=== PATIENT | male | born 1950 | race Caucasian/White ===

== ENCOUNTER → 2017-01-16 | Outpatient (REF) | payer OTHER, MEDICAID ==
[2017-01-16 16:37] LABS: ALBUMIN 3.5 GM/DL (3.2-5.2); ALBUMIN/GLOBULIN RATIO 1.06 (1.00-1.93); ALKALINE PHOSPHATASE 81 U/L (45-117); ALT/SGPT 19 U/L (12-78); ANION GAP 6 MEQ/L (8-16); AST/SGOT 17 U/L (7-37); BILIRUBIN,TOTAL 0.5 MG/DL (0.2-1.0); BLOOD UREA NITROGEN 14 MG/DL (7-18); CALCIUM LEVEL 8.6 MG/DL (8.8-10.2); CARBON DIOXIDE LEVEL 30 MEQ/L (21-32); CHLORIDE LEVEL 104 MEQ/L (98-107); CHOLESTEROL LEVEL 206 MG/DL (<200); CREATININE FOR GFR 0.85 MG/DL (0.70-1.30); GLOMERULAR FILTRATION RATE > 60.0 (>49); GLUCOSE, FASTING 109 MG/DL (80-110); POTASSIUM SERUM 4.3 MEQ/L (3.5-5.1); SODIUM LEVEL 140 MEQ/L (136-145); TOTAL PROTEIN 6.8 GM/DL (6.4-8.2); TRIGLYCERIDES LEVEL 89 MG/DL (<150)
== END ==
LOC: M SFHCCLAY 13:51
PROVIDERS: ATTEND Nurse Practitioner Family
DX: E78.2 Mixed hyperlipidemia (principal)

== ENCOUNTER → 2017-01-18 | Outpatient (CLI) | payer OTHER, MEDICAID ==
--- NOTE | 2017-01-18 16:53 | REP ---
Clinical: Pain and decreased range of motion. Technique: AP and lateral views of the right humerus. Findings: Early advanced arthritic changes at the right shoulder include subacromial joint space narrowing, cortical irregularity and spurring at the acromioclavicular joint as well small osteophyte along the inferior margin of the humeral head and blunting of the glenoid rim. No acute fracture dislocation. Impression: Early advanced degenerative changes at the right shoulder. No acute fracture or dislocation.
--- NOTE | 2017-01-18 16:54 | REP ---
Clinical: Pain and decreased range of motion. Technique: Internal rotation, external rotation, and Y view of the right shoulder. Findings: Early advanced arthritic changes at the right shoulder include subacromial joint space narrowing, cortical irregularity and spurring at the acromioclavicular joint as well small osteophyte along the inferior margin of the humeral head and blunting of the glenoid rim. No acute fracture dislocation. Impression: Early advanced osteoarthritic degenerative changes.
== END ==
LOC: M CLY 15:46
PROVIDERS: ATTEND Nurse Practitioner Family
DX: M19.011 Primary osteoarthritis, right shoulder (principal)
CPT/HCPCS: 73030; 73060; 90662; G0008; G0463

== ENCOUNTER → 2017-09-14 | Outpatient (REF) | payer OTHER, MEDICAID ==
[2017-09-14 14:12] LABS: BASO % 0.4 % (0.0-1.0); EOS # 0.1 10^3/uL (0.0-0.50); EOS % 1.8 % (0.0-3.0); HEMATOCRIT 40.6 % (42.0-52.0); HEMOGLOBIN 13.6 g/dl (13.5-17.5); IMMATURE GRANULOCYTE % 0.4 % (0-3.0); LYMPH # 0.8 10^3/uL (1.5-4.5); LYMPH % 10.2 % (24.0-44.0); MEAN CORPUSCULAR HEMOGLOBIN 32.2 pg (27.0-33.0); MEAN CORPUSCULAR HGB CONC 33.5 g/dl (32.0-36.5); MEAN CORPUSCULAR VOLUME 96.2 fl (80.0-96.0); MONO # 0.6 10^3/uL (0.0-0.8); MONO % 7.6 % (0.0-5.0); NEUTROPHILS # 5.8 10^3/uL (1.8-7.7); NEUTROPHILS % 79.6 % (36.0-66.0); PLATELET COUNT, AUTOMATED 189 10^3/uL (150-450); RED BLOOD COUNT 4.22 10^6/uL (4.30-6.10); RED CELL DISTRIBUTION WIDTH 13.3 % (11.5-14.5); WHITE BLOOD COUNT 7.3 10^3/uL (4.0-10.0)
[2017-09-14 14:18] LABS: FOLATE 4.4 NG/ML; VITAMIN B12 LEVEL 320 PG/ML
[2017-09-14 14:21] LABS: ALBUMIN 3.6 GM/DL (3.2-5.2); ALBUMIN/GLOBULIN RATIO 1.24 (1.00-1.93); ALKALINE PHOSPHATASE 85 U/L (45-117); ALT/SGPT 21 U/L (12-78); ANION GAP 5 MEQ/L (8-16); AST/SGOT 13 U/L (7-37); BILIRUBIN,TOTAL 0.4 MG/DL (0.2-1.0); BLOOD UREA NITROGEN 14 MG/DL (7-18); CALCIUM LEVEL 8.6 MG/DL (8.8-10.2); CARBON DIOXIDE LEVEL 29 MEQ/L (21-32); CHLORIDE LEVEL 108 MEQ/L (98-107); CREATININE FOR GFR 0.92 MG/DL (0.70-1.30); GLOMERULAR FILTRATION RATE > 60.0 (>49); GLUCOSE, FASTING 68 MG/DL (70-100); POTASSIUM SERUM 4.7 MEQ/L (3.5-5.1); RHEUMATOID FACTOR QUANT < 10.0 IU/ML (<15.0); SODIUM LEVEL 142 MEQ/L (136-145); THYROID STIMULATING HORMONE 0.615 uIU/ML (0.358-3.740); TOTAL PROTEIN 6.5 GM/DL (6.4-8.2)
[2017-09-14 14:29] LABS: ESTIMATED AVERAGE GLUCOSE 114 MG/DL (60-110); HEMOGLOBIN A1c 5.6 %
[2017-09-14 14:55] LABS: ERYTHROCYTE SEDIMENTATION RATE 4 mm/hr (0-20)
[2017-09-19 11:56] LABS: ALBUMIN 3.97 GM/DL (3.29-5.55); ALBUMIN % 61.1 % (55.8-66.1); ALPHA-1-GLOBULIN % 4.4 % (2.9-4.9); ALPHA-1-GLOBULINS 0.29 GM/DL (0.17-0.41); ALPHA-2-GLOBULINS 0.66 GM/DL (0.42-0.99); ALPHA-2-GLOBULINS % 10.2 % (7.1-11.8); BETA-1-GLOBULINS % 6.1 % (4.7-7.2); BETA-2-GLOBULINS 0.27 GM/DL (0.19-0.55); BETA-2-GLOBULINS % 4.1 % (3.2-6.5); GAMMA GLOBULIN % 14.1 % (11.1-18.8); GAMMA GLOBULINS 0.92 GM/DL (0.65-1.58)
[2017-09-20 00:07] LABS: ANCA-ATYPICAL <1:20 titer (Neg:<1:20); ANTI DOUBLE STRAND-DNA AB <1 IU/mL (0-9); ANTINUCLEAR ANTIBODIES DIRECT Negative (Negative); CERULOPLASMIN 26.6 mg/dL (16.0-31.0); COPPER PLASMA 105 ug/dL (72-166); CYTOPLASMIC NEUTROP AB ANCA-C <1:20 titer (Neg:<1:20); LEAD BLOOD ADULT 3 ug/dL (0-19); MERCURY LEVEL None Detected ug/L (0.0-14.9); PERINUCLEAR AB ANCA-P <1:20 titer (Neg:<1:20); SJOGREN'S ANTI SS-A <0.2 AI (0.0-0.9); SJOGREN'S ANTI SS-B <0.2 AI (0.0-0.9); VITAMIN B1 LEVEL WHOLE BLOOD 108.5 nmol/L (66.5-200.0); VITAMIN B6,PYRIDOXAL PHOSPHATE 3.7 ug/L (5.3-46.7); VITAMIN E(ALPHA TOCOPHEROL) 8.5 mg/L (9.0-29.0); VITAMIN E(GAMMA TOCOPHEROL) 1.9 mg/L (0.5-4.9)
== END ==
LOC: M LABNEURO 10:29
DX: R25.1 Tremor, unspecified (principal); G31.84 Mild cognitive impairment of uncertain or unknown etiology; Z79.899 Other long term (current) drug therapy
CPT/HCPCS: 82525

== ENCOUNTER → 2017-11-01 | Outpatient (CLI) | payer OTHER, MEDICAID | LOC: M RAD 07:50 | DX: R33.9 Retention of urine, unspecified (principal); N20.0 Calculus of kidney; R39.198 Other difficulties with micturition | CPT/HCPCS: 76775 ==

== ENCOUNTER → 2017-12-01 | Outpatient (REF) | payer OTHER, MEDICAID ==
[2017-12-01 18:47] LABS: APPEARANCE, URINE CLOUDY (CLEAR); BACTERIA, URINE AUTO 2+ (NEGATIVE); BILIRUBIN, URINE AUTO NEGATIVE (NEGATIVE); BLOOD, URINE BLOOD 3+ (NEGATIVE); COLOR, URINE RED (YELLOW); GLUCOSE, URINE (UA) AUTO NEGATIVE (NEGATIVE); KETONE, URINE AUTO TRACE mg/dL (NEGATIVE); LEUKOCYTE ESTERASE, URINE AUTO 3+ (NEGATIVE); NITRITE, URINE AUTO POSITIVE (NEGATIVE); PROTEIN, URINE AUTO 2+ mg/dL (NEGATIVE); RBC, URINE AUTO TNTC /HPF (0-3); SPECIFIC GRAVITY URINE AUTO 1.008 (1.002-1.035); SQUAMOUS EPITHELIAL CELL UR AU 0 /HPF (0-6); UROBILINOGEN, URINE AUTO 0.2 mg/dL (0.0-2.0); WBC, URINE AUTO TNTC /HPF (0-3)
== END ==
LOC: M SMT 17:08
DX: R10.30 Lower abdominal pain, unspecified (principal)
CPT/HCPCS: 81001

== ENCOUNTER 2017-12-21 07:48 | Day surgery (SDC) | payer OTHER, MEDICAID ==
[2017-12-21] MEDS: LR 1,000 ML IV ×2 (09:33)
[2017-12-21] MEDS ORDERED: MIDAZOLAM INJ 2 MG/2 ML VIAL (J2250) As Ordered ×2 (10:42)
[2017-12-21] MEDS ORDERED: PROPOFOL 200 MG/20 ML VIAL As Ordered ×2 (10:42)
[2017-12-21] MEDS ORDERED: LIDOCAINE 2% INJ 100 MG/5 ML SDV (FOR ANES.) As Ordered ×2 (10:42)
[2017-12-21] MEDS ORDERED: dexameTHASONE 4 MG/ML 1ML VIAL (J1100) As Ordered ×2 (10:42)
[2017-12-21] MEDS ORDERED: ONDANSETRON 4MG/2ML VIAL (J2405) As Ordered ×2 (10:42)
[2017-12-21] MEDS ORDERED: fentaNYL 100 MCG/2 ML INJECTION (J3010) As Ordered ×2 (10:42)
[2017-12-21] MEDS: LIDOCAINE 2% 5ML JELLY UROJET As Ordered ×2 (11:24)
[2017-12-21] MEDS ORDERED: ePHEDrine SULFATE 25 MG/5 ML(5MG/ML) SYRINGE As Ordered ×2 (11:26)
== END 2017-12-21 13:10 | disposition home or self-care (01) ==
LOC: M SDC 07:48
DX: N20.0 Calculus of kidney (principal); R33.9 Retention of urine, unspecified; K21.9 Gastro-esophageal reflux disease without esophagitis; E78.5 Hyperlipidemia, unspecified; F17.210 Nicotine dependence, cigarettes, uncomplicated; F41.9 Anxiety disorder, unspecified; Z79.899 Other long term (current) drug therapy
CPT/HCPCS: 50590

== ENCOUNTER → 2018-01-12 | Outpatient (CLI) | payer OTHER | LOC: M SMT 08:52 | DX: N20.0 Calculus of kidney (principal) | CPT/HCPCS: 74018 ==

== ENCOUNTER 2018-03-07 09:49 | Day surgery (SDC) | payer MEDICARE, MEDICAID ==
[~2018-03-07] VITALS: Ht 162.6 cm; Wt 60.8 kg
[~2018-03-07 09:49] MED LIST: ATOR40TA75 PO; BACT800T5 PO; BUSP10TA PO; DONETAB6 PO; FLOM0.4C39 PO; GLYCOPYRROLATE INJ 0.2 MG/ML 2 ML VIAL As Ordered ONE; LIDOCAINE 1% MDV 20ML VIAL SQ PRN; LIDOCAINE 2% INJ 100 MG/5 ML SDV (FOR ANES.) As Ordered ONE; LR 1,000 ML IV ONE; MIDAZOLAM INJ 2 MG/2 ML VIAL (J2250) As Ordered ONE; NEOSTIGMINE 10 MG/10 ML VIAL (J2710) As Ordered ONE; ONDANSETRON 4MG/2ML VIAL (J2405) As Ordered ONE; PROPOFOL 200 MG/20 ML VIAL As Ordered ONE; RANI150T PO; ROCURONIUM BROMIDE 50 MG/5 ML VIAL As Ordered ONE; WELLTAB38 PO; dexameTHASONE 4 MG/ML 1ML VIAL (J1100) As Ordered ONE; fentaNYL 100 MCG/2 ML INJECTION (J3010) As Ordered ONE
[2018-03-07] MEDS ORDERED: fentaNYL 100 MCG/2 ML INJECTION (J3010) As Ordered ONE (13:07)
[2018-03-07] MEDS ORDERED: LABETALOL HCL 100 MG/20 ML VIAL As Ordered ONE (13:14)
[2018-03-07] MEDS ORDERED: FUROSEMIDE 100 MG/10 ML VIAL (J1940) As Ordered ONE (13:50)
--- NOTE | 2018-03-07 14:22 | RO ---
DATE OF PROCEDURE: 03/07/2018 PREPROCEDURE DIAGNOSIS: Benign prostatic hyperplasia (BPH). POSTPROCEDURE DIAGNOSIS: Benign prostatic hyperplasia (BPH). PROCEDURE: Cystoscopy, button transurethral electrovaporization of the prostate. SURGEON: Henry Chapa MD PELLET POST INSPECTOR: None. ANESTHESIA: General. OPERATIVE INDICATIONS: This is a 67-year-old male with benign prostatic hyperplasia and urinary retention, who was brought to the operating room today for the above listed procedure. DESCRIPTION OF PROCEDURE: The patient was brought to the operating and general anesthesia was induced. Prophylactic antibiotics were infused. He was then placed in dorsal lithotomy position and prepped and draped in the usual sterile fashion. At this point, a button resectoscope was inserted into the urethral meatus and advanced into the bladder using the visual obturator. Once inside the bladder, I made note of the location of both ureteral orifices and they were not very close to the bladder neck. I also made note of the location of the verumontanum. Of note, the patient had bilobar benign prostatic hyperplasia. At this point, I began vaporizing hyperplastic tissue circumferentially at the bladder neck and then on both lobes of disease. I kept doing this until there was a clear channel established. Throughout the procedure, I made sure not to vaporize too close to the ureteral orifices or distal the verumontanum. Once satisfied with the clear channel, hemostasis was obtained with a coagulation current. Once there was excellent hemostasis, the resectoscope was removed and then an 18-[place] Andrews catheter was inserted into the bladder. The balloon was filled with 15 mL of sterile water and fluid drained very light pink at the end of the procedure. The catheter was connected to gravity drainage. This marked the conclusion of the procedure. The patient was then taken out of dorsal lithotomy position, awakened from anesthesia and transported to the recovery room in stable condition. ESTIMATED BLOOD LOSS: 15 mL. COMPLICATIONS: None. SPECIMENS: None. PLAN: The patient will go home with a catheter and followup in the clinic next week for catheter removal and voiding trial. ANAY
[2018-03-07] MEDS ORDERED: NORCO, ANEXSIA 5/325MG TABLET (HYDROcodone/ACETAMINOPHEN) PO PRN (14:30)
[2018-03-07] MEDS ORDERED: ACETAMINOPHEN TAB 650MG DOSE (2X325MG) PO PRN (14:30)
[2018-03-07] MEDS ORDERED: ONDANSETRON 4MG/2ML VIAL (J2405) IV PRN (14:30)
[2018-03-07] MEDS ORDERED: fentaNYL 100 MCG/2 ML INJECTION (J3010) IV PRN (14:30)
[2018-03-07] MEDS ORDERED: LR 1,000 ML IV SCH (14:30)
[2018-03-07 15:55] VITALS: BP 150/74
== END 2018-03-07 16:25 | disposition home or self-care (01) ==
LOC: M SDC 09:49
PROVIDERS: ATTEND Urology
DX: N40.1 Benign prostatic hyperplasia with lower urinary tract symptoms (principal); E78.5 Hyperlipidemia, unspecified; K21.9 Gastro-esophageal reflux disease without esophagitis; F41.9 Anxiety disorder, unspecified; Z79.899 Other long term (current) drug therapy; F17.210 Nicotine dependence, cigarettes, uncomplicated
CPT/HCPCS: 52601; J0690; J1100; J1940; J2250; J2405; J2710; J3010

== ENCOUNTER 2018-09-29 18:15 | Emergency (ER) | payer MEDICARE, MEDICAID ==
[~2018-09-29] VITALS: Ht 162.6 cm; Wt 51.6 kg
[~2018-09-29 18:15] MED LIST changes: +ATOR40TA75 PEG; -ATOR40TA75 PO; +BUSP10TA PEG; -BUSP10TA PO; -GLYCOPYRROLATE INJ 0.2 MG/ML 2 ML VIAL As Ordered ONE; -LIDOCAINE 1% MDV 20ML VIAL SQ PRN; -LIDOCAINE 2% INJ 100 MG/5 ML SDV (FOR ANES.) As Ordered ONE; -LR 1,000 ML IV ONE; -MIDAZOLAM INJ 2 MG/2 ML VIAL (J2250) As Ordered ONE; -NEOSTIGMINE 10 MG/10 ML VIAL (J2710) As Ordered ONE; -ONDANSETRON 4MG/2ML VIAL (J2405) As Ordered ONE; -PROPOFOL 200 MG/20 ML VIAL As Ordered ONE; -ROCURONIUM BROMIDE 50 MG/5 ML VIAL As Ordered ONE; -dexameTHASONE 4 MG/ML 1ML VIAL (J1100) As Ordered ONE; -fentaNYL 100 MCG/2 ML INJECTION (J3010) As Ordered ONE
[2018-09-29] MEDS ORDERED: CLEO300C2 PO (18:48)
[2018-09-29] MEDS ORDERED: OXYC10TA12 PO (18:48)
[2018-09-29] MEDS ORDERED: NAPR-885 PO (18:48)
[2018-09-29] MEDS ORDERED: PERCOCET 5MG/325MG TAB PO ONE (19:00)
[2018-09-29] MEDS ORDERED: ACETAMINOPHEN TAB 650MG DOSE (2X325MG) PO ONE (19:00)
[2018-09-29 19:22] LABS: BASO % 0.4 % (0.0-1.0); EOS # 0.2 10^3/uL (0.0-0.50); EOS % 2.7 % (0.0-3.0); HEMATOCRIT 37.4 % (42.0-52.0); HEMOGLOBIN 12.7 g/dl (13.5-17.5); LYMPH # 1.3 10^3/uL (1.5-4.5); LYMPH % 16.6 % (24.0-44.0); MEAN CORPUSCULAR HEMOGLOBIN 32.7 pg (27.0-33.0); MEAN CORPUSCULAR VOLUME 96.4 fl (80.0-96.0); MONO # 0.6 10^3/uL (0.0-0.8); MONO % 7.8 % (0.0-5.0); NEUTROPHILS # 5.6 10^3/uL (1.8-7.7); NEUTROPHILS % 72.2 % (36.0-66.0); PLATELET COUNT, AUTOMATED 183 10^3/uL (150-450); RED BLOOD COUNT 3.88 10^6/uL (4.30-6.10); WHITE BLOOD COUNT 7.8 10^3/uL (4.0-10.0)
[2018-09-29 19:42] LABS: ALBUMIN 3.7 GM/DL (3.2-5.2); ALT/SGPT 30 U/L (12-78); BILIRUBIN,DIRECT < 0.1 MG/DL (0.0-0.2); BILIRUBIN,TOTAL 0.5 MG/DL (0.2-1.0); TOTAL PROTEIN 6.5 GM/DL (6.4-8.2)
[2018-09-29] MEDS ORDERED: ISOVUE-370 76% 100ML VIAL (Q9967) As Ordered ONE (19:47)
--- NOTE | 2018-09-29 21:01 | REPVR ---
EXAM: CT Neck With Contrast EXAM DATE/TIME: 09/29/2018 7:51 PM CLINICAL HISTORY: 67 years old, male; Other: Jaw pain; Prior surgery; Surgery date: <1 month; Surgery type: Jaw surgery 3wks ago; Additional info: Left jaw/submandibular pain; ? Abscess TECHNIQUE: Imaging protocol: Axial computed tomography images of the neck with intravenous contrast. Coronal and sagittal reformatted images were created and reviewed. Radiation optimization: All CT scans at this facility use at least one of these dose optimization techniques: automated exposure control; mA and/or kV adjustment per patient size (includes targeted exams where dose is matched to clinical indication); or iterative reconstruction. Contrast material: ISOVUE 370;Contrast volume: 75 ml;Contrast route: IV; COMPARISON: No relevant prior studies available. FINDINGS: Nasopharynx: Normal. Oropharynx: The epiglottis appears to be pressed against the base of the tongue. Slight asymmetric prominence of the left tonsil with some caudal edema and asymmetric decreased size of the left piriform sinus. Hypopharynx: Normal. Larynx: Normal. Normal epiglottis. Retropharyngeal space: Normal. Submandibular/Parotid glands: Normal. Glands are normal in size. Thyroid: Normal. No enlarged or calcified nodules. Lymph nodes: Normal. No lymphadenopathy. Trachea: Visualized trachea is unremarkable. Lungs: Normal as visualized. Bones/joints: Normal. No acute fracture. Soft tissues: Minimal gas and confluence along the lingual aspect of the anterior right mandibular body suggesting minimal abscess with surrounding inflammatory induration or phlegmon. There is asymmetric increased surrounding vasculature. IMPRESSION: 1. [place] with minimal gas along the lingual aspect of the anterior right mandibular body suggesting minimal abscess and surrounding inflammatory induration or phlegmon. 2. Slightly enlarged left tonsil with edema extending caudally and asymmetric decreased left piriform sinus. Electronically signed by: Momo Burgos On 09/29/2018 21:00:29 PM
[2018-09-29 21:45] VITALS: BP 150/70
[2018-09-29] MEDS ORDERED: FLON1SPR NARES (22:05)
--- NOTE | 2018-10-01 21:40 | ED PDOC ---
Post-Departure Follow-Up kylie tyler and dr leyva faxed formal report of ct neck for fu ameeg Francis Huitron MD Oct 01, 2018 21:40
[2019-02-12] MEDS ORDERED: MECL1TAB31 PO (22:35)
== END 2018-09-29 22:14 | disposition home or self-care (01) ==
LOC: M ED 18:15
DX: H65.02 Acute serous otitis media, left ear (principal); J35.1 Hypertrophy of tonsils; K08.89 Other specified disorders of teeth and supporting structures; N40.0 Benign prostatic hyperplasia without lower urinary tract symptoms; K21.9 Gastro-esophageal reflux disease without esophagitis; Z72.0 Tobacco use; Z79.899 Other long term (current) drug therapy
CPT/HCPCS: 70491; 80047; 80076; 83605; 85025; 87040; 99284; Q9967

== ENCOUNTER → 2018-10-15 | Outpatient (CLI) | payer MEDICARE, MEDICAID ==
[~2018-10-15] MED LIST changes: -ATOR40TA75 PEG; +ATOR40TA75 PO; -BUSP10TA PEG; +BUSP10TA PO; +CLEO300C2 PO; +FLON1SPR NARES; +NAPR-885 PO; +OXYC10TA12 PO
--- NOTE | 2018-10-15 14:11 | REP ---
Whole body radionuclide bone scan: The study is performed with intravenous infusion of MDP radiolabeled with 21.2 mCi of technetium 99m. There are no comparison studies. The patient complains of left mandibular pain after dental surgery. There is no abnormal or unusual focal uptake in the calvarium, maxilla or mandible, including right and left lateral views of the head and neck. There is no focal abnormal uptake in the neck. There is bilaterally symmetric uptake in the shoulders, compatible with osteoarthritis. There is no focal increased uptake in the thoracic or lumbar spine. No focal unusual uptake in the ribs or sternum or upper extremities. In the abdomen the bladder is markedly distended and filled with radiolabeled urine in spite of the fact that the the patient indicates he voided as best as possible just prior to the imaging. Follow-up evaluation for bladder outlet stenosis might be considered. No abnormal uptake foci are identified in the pelvis or hips. No abnormal foci are identified in the lower extremities. Impression: Normal. No abnormal focal areas of uptake are identified, particularly in the mandible on the left. There are is bilaterally symmetric uptake in the shoulders, compatible with osteoarthritis. The bladder is markedly distended and filled with radiolabeled urine in spite of the fact that the the patient indicates he voided as best as possible just prior to imaging. Therefore, follow-up evaluation of the bladder outlet stenosis might be considered. Consider bladder ultrasound including pre and post void bladder volume evaluation. Also consider a renal ultrasound for hydronephrosis. Electronically Signed by Reginald Lundy MD 10/15/2018 02:02 P
== END ==
LOC: M RAD 09:52
PROVIDERS: ATTEND Otolaryngology
DX: M86.28 Subacute osteomyelitis, other site (principal)
CPT/HCPCS: 78306; A9503

== ENCOUNTER → 2019-01-16 | Outpatient (REF) | payer MEDICARE, MEDICAID ==
[2019-01-16 13:07] LABS: BASO # 0.1 10^3/uL (0.0-0.2); BASO % 0.6 % (0.0-1.0); EOS # 0.1 10^3/uL (0.0-0.5); EOS % 1.5 % (0.0-3.0); HEMATOCRIT 38.7 % (42.0-52.0); HEMOGLOBIN 12.5 g/dl (13.5-17.5); LYMPH # 1.1 10^3/uL (1.5-5.0); LYMPH % 13.5 % (24.0-44.0); MEAN CORPUSCULAR HEMOGLOBIN 32.2 pg (27.0-33.0); MEAN CORPUSCULAR HGB CONC 32.3 g/dl (32.0-36.5); MEAN CORPUSCULAR VOLUME 99.7 fl (80.0-96.0); MONO # 0.6 10^3/uL (0.0-0.8); MONO % 7.4 % (0.0-5.0); NEUTROPHILS # 6.5 10^3/uL (1.5-8.5); NEUTROPHILS % 76.6 % (36.0-66.0); PLATELET COUNT, AUTOMATED 272 10^3/uL (150-450); RED BLOOD COUNT 3.88 10^6/uL (4.30-6.10); WHITE BLOOD COUNT 8.4 10^3/uL (4.0-10.0)
[2019-01-16 13:20] LABS: ALBUMIN 3.6 GM/DL (3.2-5.2); ALT/SGPT 26 U/L (12-78); BILIRUBIN,TOTAL 0.6 MG/DL (0.2-1.0); BLOOD UREA NITROGEN 14 MG/DL (7-18); CALCIUM LEVEL 9.8 MG/DL (8.8-10.2); CARBON DIOXIDE LEVEL 30 MEQ/L (21-32); CHLORIDE LEVEL 104 MEQ/L (98-107); CHOLESTEROL LEVEL 170 MG/DL (<200); CHOLESTEROL RISK RATIO 1.734 (<5); CREATININE FOR GFR 0.94 MG/DL (0.70-1.30); GLOMERULAR FILTRATION RATE > 60.0 (>49); GLUCOSE, FASTING 90 MG/DL (70-100); HDL CHOLESTEROL 98 MG/DL (>40); LDL CHOLESTEROL 61 MG/DL (<100); NON-HDL-C 72 MG/DL; POTASSIUM SERUM 4.5 MEQ/L (3.5-5.1); SODIUM LEVEL 140 MEQ/L (136-145); THYROID STIMULATING HORMONE 0.791 uIU/ML (0.358-3.740); TRIGLYCERIDES LEVEL 54 MG/DL (<150)
== END ==
LOC: M SFHCLERA 10:14
PROVIDERS: ATTEND Family Medicine
DX: R63.4 Abnormal weight loss (principal); E78.5 Hyperlipidemia, unspecified
CPT/HCPCS: 80053; 80061; 84443; 85025; G0463

== ENCOUNTER → 2019-01-28 | Outpatient (CLI) | payer MEDICARE, MEDICAID ==
[~2019-01-28] MED LIST changes: +ISOVUE-370 76% 100ML VIAL (Q9967) As Ordered ONE
--- NOTE | 2019-01-28 10:57 | REP ---
Clinical: Inhalational disease . Comparison: 10/05/2009 . Technique: PA and lateral. Findings: The mediastinum and cardiac silhouette are normal. The lung arceo demonstrate chronic-appearing changes without acute consolidation, effusion, or pneumothorax. The skeletal structures are intact and normal. Impression: 1. No acute cardiopulmonary process. Electronically Signed by Rene Kerr MD 01/28/2019 10:49 A
--- NOTE | 2019-01-29 08:03 | REP ---
Clinical: Inhalational pneumonitis. Technique: Axial contrast enhanced images from the thoracic inlet to the upper abdomen with coronal and sagittal re-formations using 75 ml Isovue 370 intravenous contrast material. Findings: Moderate chronic emphysematous changes are appreciated along with mild bronchiectasis and minimal scattered basilar scarring. 9 mm noncalcified nodule in the anterior subpleural right middle lobe (image 71) along with subtle tree in bud type infiltrates involving the right middle lobe and right lower lobe suggest acute pneumonitis. No effusion. No significant adenopathy. Mediastinum demonstrates relatively normal thoracic aorta without aneurysm or dissection. Atherosclerotic changes to the coronary arteries noted without cardiomegaly or pericardial effusion. Musculoskeletal structures demonstrate age-related degenerative changes without focal abnormality. Limited upper abdomen demonstrates normal bilateral adrenal glands along with cholelithiasis. Impression: 1. Subtle tree in bud type pattern in the right middle lobe and right lower lobe suggest acute pneumonitis. 9 mm noncalcified nodule in the subpleural right middle lobe. Findings warrant short-term follow-up. 2. Chronic emphysematous changes with mild bronchiectasis. 3. Cholelithiasis. Electronically Signed by Rene Kerr MD 01/28/2019 11:17 A
== END ==
LOC: M RAD 10:23
PROVIDERS: ATTEND Thoracic Surgery (Cardiothoracic Vascular Surgery)
DX: R91.1 Solitary pulmonary nodule (principal); J47.9 Bronchiectasis, uncomplicated; K80.20 Calculus of gallbladder without cholecystitis without obstruction; J69.8 Pneumonitis due to inhalation of other solids and liquids
CPT/HCPCS: 71046; 71260; Q9967

== ENCOUNTER 2019-02-05 08:42 | Outpatient (RCR) | payer MEDICARE, MEDICAID ==
[~2019-02-05 08:42] MED LIST changes: +ATOR40TA75 PEG; -ATOR40TA75 PO; +BUSP10TA PEG; -BUSP10TA PO; -ISOVUE-370 76% 100ML VIAL (Q9967) As Ordered ONE
[2019-02-12] MEDS ORDERED: LEVA1TAB2 PO ×2 (18:53→22:35)
[2019-02-12] MEDS ORDERED: ALBU83IN INH (22:35)
[2019-02-12] MEDS ORDERED: GABA-843 PO (22:35)
[2019-02-12] MEDS ORDERED: DONE10TA90 PEG (22:35)
[2019-02-12] MEDS ORDERED: MECL-68 PO (22:35)
[2019-02-12] MEDS ORDERED: ASPI-161 PO (22:35)
[2019-02-12] MEDS ORDERED: NAPR500T6 PO (22:35)
[2019-02-16] MEDS ORDERED: DETR1TAB5 PEG (09:21)
[2019-02-16] MEDS ORDERED: BUPR75TA5 PEG (09:21)
[2019-02-16] MEDS ORDERED: ASPI81CH8 PEG (09:21)
[2019-02-16] MEDS ORDERED: Benzocaine Gel MT (09:24)
[2019-02-16] MEDS ORDERED: DOXA2TAB3 PO (12:51)
== END 2019-02-26 ==
LOC: M ST 08:42
PROVIDERS: ATTEND Family Medicine
DX: Z51.89 Encounter for other specified aftercare (principal); I69.391 Dysphagia following cerebral infarction

== ENCOUNTER 2019-02-12 18:47 | Inpatient (IN) | payer MEDICARE, MEDICAID ==
[~2019-02-12] VITALS: Ht 162.6 cm; Wt 47.0 kg
[~2019-02-12 18:47] MED LIST changes: -ALBU83IN INH; -ASPI-161 PO; -DONE10TA90 PO; -GABA-843 PO; -LEVA1TAB2 PO; -MECL-68 PO; -NAPR500T6 PO
[2019-02-12] MEDS ORDERED: LEVA1TAB2 PO ×2 (18:53→22:35)
[2019-02-12 19:53] LABS: BASO % 0.4 % (0.0-1.0); EOS # 0.1 10^3/uL (0.0-0.5); EOS % 1.1 % (0.0-3.0); HEMATOCRIT 35.4 % (42.0-52.0); HEMOGLOBIN 11.6 g/dl (13.5-17.5); LYMPH # 1.2 10^3/uL (1.5-5.0); LYMPH % 10.9 % (24.0-44.0); MEAN CORPUSCULAR HEMOGLOBIN 31.6 pg (27.0-33.0); MEAN CORPUSCULAR HGB CONC 32.8 g/dl (32.0-36.5); MEAN CORPUSCULAR VOLUME 96.5 fl (80.0-96.0); MONO # 0.8 10^3/uL (0.0-0.8); MONO % 7.1 % (0.0-5.0); NEUTROPHILS # 9.1 10^3/uL (1.5-8.5); NEUTROPHILS % 80.1 % (36.0-66.0); PLATELET COUNT, AUTOMATED 307 10^3/uL (150-450); RED BLOOD COUNT 3.67 10^6/uL (4.30-6.10); WHITE BLOOD COUNT 11.3 10^3/uL (4.0-10.0)
[2019-02-12] MEDS ORDERED: NS 1,000 ML IV SCH (20:03)
[2019-02-12 20:27] LABS: BLOOD UREA NITROGEN 21 MG/DL (7-18); CALCIUM LEVEL 9.1 MG/DL (8.8-10.2); CARBON DIOXIDE LEVEL 29 MEQ/L (21-32); CHLORIDE LEVEL 104 MEQ/L (98-107); CK-MB VALUE MASS 1.9 NG/ML (<3.6); CPK CREATINE PHOSPHOKINASE 97 U/L (39-308); CREATININE FOR GFR 0.97 MG/DL (0.70-1.30); GLOMERULAR FILTRATION RATE > 60.0 (>49); GLUCOSE, FASTING 99 MG/DL (70-100); MB/CK RELATIVE INDEX 1.96 (< OR =4); POTASSIUM SERUM 4.3 MEQ/L (3.5-5.1); SODIUM LEVEL 140 MEQ/L (136-145); TROPONIN I < 0.02 NG/ML (< 0.10)
[2019-02-12 20:33] LABS: VENOUS BASE EXCESS 3.7 (-2.0-2.0); VENOUS HCO3 30.4 MEQ/L (23.0-27.0); VENOUS O2 SATURATION 64.9 % (60.0-80.0); VENOUS PARTIAL PRESSURE CO2 55.9 mmHg (38.0-50.0); VENOUS PARTIAL PRESSURE O2 36.4 mmHg (30.0-50.0); VENOUS PH 7.354 UNITS (7.330-7.430); VENOUS TOTAL CO2 32.2 MEQ/L (24.0-28.0)
[2019-02-12 20:47] LABS: INR 1.1; PROTHROMBIN TIME 13.9 SECONDS (11.8-14.0)
[2019-02-12] MEDS ORDERED: MECL-68 PO (22:35)
[2019-02-12] MEDS ORDERED: NAPR500T6 PO (22:35)
[2019-02-12] MEDS ORDERED: ASPI-161 PO (22:35)
[2019-02-12] MEDS ORDERED: DONE10TA90 PO (22:35)
[2019-02-12] MEDS ORDERED: GABA-843 PO (22:35)
[2019-02-12] MEDS ORDERED: ALBU83IN INH (22:35)
--- NOTE | 2019-02-12 22:57 | HPEPDOC ---
General Date of Admission Feb 12, 2019 at 22:32 Date of Service: Feb 12, 2019 Chief Complaint The patient is a 68-year-old male admitted with a reason for visit of Anorexia, Dysphagia As Late Effect Of Cva. Source: Patient, Family Exam Limitations: No limitations Timing/Duration: Week(s) Severity: Severe History of Present Illness Patient is 68 years old male with past medical history of carotid artery juma nosis, hyperlipidemia, depression, anxiety presented hospital with severe oropharyngeal dysfunction. Patient stated that after stroke in 2019 in November he developed progressive swallowing dysfunction associated with choking and cough. Due to oropharyngeal dysfunction patient lost around 25 pounds since November. Recently he's been treated for aspiration pneumonia with Augmentin. Today patient had swallowing evaluation, he stated that most likely he had modified barium study. Report is not available for now. After swallowing study patient was recommended nothing by mouth by his PCP and visit emergency. In emergency room patient was found to have mild leukocytosis of 11.3, vital signs stable, he is normotensive. Patient denies fever, chills, nausea, vomiting, shortness of breath, diarrhea or dysuria Home Medications Scheduled Aspirin (Aspirin EC) 81 Mg Tablet.dr, 81 MG PO DAILY, (Reported) Atorvastatin Calcium (Atorvastatin Calcium) 40 Mg Tab, 40 MG PO DAILY, (Reported) Bupropion HCl (Wellbutrin Xl) 150 Mg Tab, 150 MG PO DAILY, (Reported) Buspirone HCl (Buspirone HCl) 10 Mg Tab, 10 MG PO DAILY, (Reported) Donepezil HCl (Donepezil HCl) 10 Mg Tablet, 10 MG PO QHS, (Reported) Gabapentin (Gabapentin) 300 Mg Capsule, 300 MG PO BID, (Reported) Levofloxacin (Levaquin) 500 Mg Tablet, 500 MG PO DAILY, (Reported) Tamsulosin HCl (Flomax) 0.4 Mg Cap, 0.4 MG PO DAILY, (Reported) Scheduled PRN Albuterol Sulf (Albuterol Sulfate) 2.5 Mg/3 Ml Vial.neb, 2.5 MG INH Q4H PRN for COUGH, (Reported) Meclizine HCl (Meclizine HCl) 25 Mg Tablet, 25 MG PO Q8H PRN for DIZZINESS, (Reported) Naproxen (Naproxen) 500 Mg Tablet.dr, 500 MG PO BID PRN for PAIN, (Reported) Allergies Coded Allergies: No Known Allergies (Unverified , 09/29/18) Past Medical History Medical History HYPERLIPIDEMIA DEPRESSION/ANXIETY COLONOSCOPY--2009 PSA AUGUST 2009/ SEP 2010/2012/2013/ CRUSHING INJURY OF UPPER ARM SCIATICA SINUSITIS SPIROMETRY DONE 01/13/16 KIDNEY/BLADDER STONES TOBACCO USE DISORDER: QUIT 10/2018 Surgical History CARPAL TUNNEL RELEASE(LEFT) 02/2008 CARPAL TUNNEL RELEASE (RIGHT) 04/2008 CATARACT LEFT EYE 05/06/14 BILATERAL ESWL AND CYSTOSCOPY 12/21/2017 TURP 03/07/2018 Family History FATHER: 70S YRS, UNSURE MOTHER: ALIVE 86 YRS, DM SIBLINGS: ALIVE 50S YRS 5 BROTHER(S) . NEGATIVE FOR PROSTATE CANCER OR ANY OTHER UROLOGIC DISEASE. Social History * Smoker: former Smoker Alcohol: Denies Drugs: denies A-FIB/CHADSVASC A-FIB History Current/History of A-Fib/PAF?: No Current PO Anticoag Therapy: No Review of Systems Constitutional: Denies: Chills, Fever Eyes: Denies: Pain, Vision change ENT: Reports: Dysphagia Skin: Denies: Rash Pulmonary: Reports: Cough; Denies: Dyspnea Cardiovascular: Denies: Chest Pain Gastrointestinal: Denies: Nausea, Vomiting Genitourinary: Denies: Frequency Hematologic: Denies: Bruising Endocrine: Denies: Polydipsia, Polyphagia Musculoskeletal: Denies: Neck Pain Neurological: Denies: Weakness Psych: Reports: Mood Normal Physical Examination General Exam: Positive: Alert, Cooperative Eye Exam: Positive: PERRLA ENT Exam: Positive: Atraumatic Neck Exam: Positive: Supple; Negative: JVD Chest Exam: Positive: Rhonchi Heart Exam: Positive: Rate Normal Telemetry: Positive: No significant arrhythmia Abdomen Exam: Positive: Normal bowel sounds Extremity Exam: Positive: Clubbing; Negative: Cyanosis Skin Exam: Positive: Nl turgor and temperature Neuro Exam: Positive: Strength at 5/5 X4 ext, Cranial Nerves 3-12 NL Psych Exam: Positive: Mental status NL Vital Signs Vital Signs Date Time Temp Pulse Resp B/P (MAP) Pulse Ox O2 Delivery O2 Flow Rate FiO2 02/12/19 22:02 98.4 76 18 123/64 (83) 99 Room Air Laboratory Data Labs 24H Laboratory Tests 2 02/12/19 19:45: Immature Granulocyte % (Auto) 0.4, Neutrophils (%) (Auto) 80.1H, Lymphocytes (%) (Auto) 10.9L, Monocytes (%) (Auto) 7.1H, Eosinophils (%) (Auto) 1.1, Basophils (%) (Auto) 0.4, Neutrophils # (Auto) 9.1H, Lymphocytes # (Auto) 1.2L, Monocytes # (Auto) 0.8, Eosinophils # (Auto) 0.1, Basophils # (Auto) 0.0, Nucleated Red Blood Cells % (auto) 0.0, Anion Gap 7L, Glomerular Filtration Rate > 60.0, Calcium Level 9.1, Total Creatine Kinase 97, Creatine Kinase MB 1.9, Creatine Ki nase MB Relative Index 1.96, Troponin I < 0.02 02/12/19 20:25: Prothrombin Time 13.9, Prothromb Time International Ratio 1.10, Blood Gas Bicarbonate Standard 27.0, Venous Blood pH 7.354, Venous Blood Partial Pressure CO2 55.9H, Venous Blood Partial Pressure O2 36.4, Venous Blood Total Carbon Dioxide 32.2H, Venous Blood HCO3 30.4H, Venous Blood Oxygen Saturation 64.9, Venous Blood Base Excess 3.7H, Lactic Acid Level 0.9 CBC/BMP Laboratory Tests 02/12/19 19:45 Microbiology Microbiology 02/12/19 Blood Culture, Received Pending 02/12/19 Blood Culture, Received Pending Assessment/Plan Patient is 68 years old male with past medical history of carotid artery stenosis, hyperlipidemia, depression, anxiety presented hospital with severe oropharyngeal dysfunction. Patient stated that after stroke in 2019 in November he developed progressive swallowing dysfunction associated with choking and cough. Patient was admitted for further evaluation of oropharyngeal dysfunction Problems (1) Dysphagia as late effect of cerebrovascular accident (CVA) Status: Acute Problem Text: Secondary to previous ischemic stroke Await modified barium study report Most likely patient will need PEG tube placement Appreciate/agree with neurologist and surgery consult Nothing by mouth for now IV fluid (2) Anorexia Status: Acute Problem Text: Patient has BMI of 20 Temporal wasting, severe muscle cachexia Patient lost around 20-25 pounds pounds since November 2018 Stone Grader consult Most likely patient will need enteral feeding due to severe oropharyngeal dysfunction Plan / VTE VTE Prophylaxis Ordered?: Yes SREEKANTH FRAIRE DO Feb 12, 2019 22:57
[2019-02-12] MEDS: D5W/0.9% SODIUM CHLORIDE 1,000 ML IV SCH (23:07)
[2019-02-13] MEDS ORDERED: KETOROLAC 30 MG/ML VIAL (J1885) IV ONE (02:00)
[2019-02-13 06:22] VITALS: BP 144/69
[2019-02-13] MEDS: ALBUTEROL SULFATE 2.5 MG/0.5 ML INH NEB SOLN NEB SCH ×2 (08:00→23:15)
--- NOTE | 2019-02-13 08:14 | REP ---
Two-view chest: 02/12/2019. Indication: Dyspnea. Cough. Comparison: 01/28/2019. Findings: There is no focal airspace consolidation. There is no pleural effusion or pneumothorax. The cardiomediastinal silhouette is unremarkable. The lungs are hyperinflated with chronic interstitial fibrosis. Impression: No acute cardiopulmonary process. Electronically Signed by Garland Caraballo DO 02/13/2019 08:05 A
[2019-02-13] MEDS: HEPARIN SOD (PORCINE) 5000 UNITS/ML VIAL SC SCH ×2 (09:25→22:07)
[2019-02-13] MEDS: D5W/0.9% SODIUM CHLORIDE 1,000 ML IV SCH ×2 (09:26→22:07)
[2019-02-13 10:02] LABS: HEMOGLOBIN 11.3 g/dl (13.5-17.5); MEAN CORPUSCULAR HEMOGLOBIN 30.7 pg (27.0-33.0); MEAN CORPUSCULAR HGB CONC 31.4 g/dl (32.0-36.5); MEAN CORPUSCULAR VOLUME 97.8 fl (80.0-96.0); PLATELET COUNT, AUTOMATED 288 10^3/uL (150-450); RED BLOOD COUNT 3.68 10^6/uL (4.30-6.10); WHITE BLOOD COUNT 8.5 10^3/uL (4.0-10.0)
[2019-02-13 10:30] LABS: ALBUMIN 2.8 GM/DL (3.2-5.2); ALT/SGPT 16 U/L (12-78); BILIRUBIN,TOTAL 0.6 MG/DL (0.2-1.0); BLOOD UREA NITROGEN 17 MG/DL (7-18); CALCIUM LEVEL 8.5 MG/DL (8.8-10.2); CARBON DIOXIDE LEVEL 29 MEQ/L (21-32); CHLORIDE LEVEL 108 MEQ/L (98-107); CREATININE FOR GFR 0.83 MG/DL (0.70-1.30); GLOMERULAR FILTRATION RATE > 60.0 (>49); GLUCOSE, FASTING 110 MG/DL (70-100); MAGNESIUM LEVEL 1.8 MG/DL (1.8-2.4); POTASSIUM SERUM 3.9 MEQ/L (3.5-5.1); SODIUM LEVEL 141 MEQ/L (136-145); TOTAL PROTEIN 6.7 GM/DL (6.4-8.2)
[2019-02-13] MEDS ORDERED: PROPOFOL 200 MG/20 ML VIAL As Ordered ONE (13:26)
[2019-02-13] MEDS ORDERED: LIDOCAINE 2% INJ 100 MG/5 ML SDV (FOR ANES.) As Ordered ONE (13:26)
--- NOTE | 2019-02-13 13:38 | IPNPDOC ---
Text Note Date of Service The patient was seen on 02/13/19. NOTE No changes to H+P. All questions are answered. Consent is signed. Full consult to follow. Baudilio Gallego DO VSCarlos, I+O VSCarlos, I+O Laboratory Tests 02/12/19 19:45 02/13/19 09:49 Vital Signs Date Time Temp Pulse Resp B/P (MAP) Pulse Ox O2 Delivery O2 Flow Rate FiO2 02/13/19 06:22 97.6 68 16 144/69 (94) 98 Room Air URMILA GALLEGO DO Feb 13, 2019 13:38
--- NOTE | 2019-02-13 13:39 | IPNPDOC ---
Subjective Date Seen The patient was seen on 02/13/19. Subjective Chief Complaint/HPI Patient complaining of left lower jaw pain for several months. Complains of coughing while he eats, no fever or chills, no chest pain or sob, No abdominal pain> Does have problem with voiding. Objective Physical Examination General Exam: Positive: Alert, Cooperative, No Acute Distress Eye Exam: Positive: PERRLA, Conjunctiva & lids normal ENT Exam: Positive: Atraumatic, Other ENT (bitemporal wasting) Neck Exam: Positive: Supple; Negative: JVD Chest Exam: Positive: Rhonchi, Wheezing Heart Exam: Positive: Rate Normal, Regular Rhythm, Normal S1, Normal S2; Negative: Murmurs, Rubs Telemetry: Positive: No significant arrhythmia Abdomen Exam: Positive: Normal bowel sounds, Soft; Negative: Tenderness, Hepatospenomegaly Extremity Exam: Negative: Clubbing, Cyanosis, Edema Skin Exam: Positive: Nl turgor and temperature Neuro Exam: Positive: Strength at 5/5 X4 ext, Cranial Nerves 3-12 NL Psych Exam: Positive: Mental status NL Assessment /Plan Assessment Patient is 68 years old male with past medical history of carotid artery stenosis, hyperlipidemia, depression, anxiety , CVA in November 2018, pulmonary nodule, BPH with large void void residual, nephrolithiasis, COPD, emphysema, presented hospital with severe oropharyngeal dysfunction. Patient stated that after stroke in 2019 in November he developed progressive swallowing dysfunction associated with choking and cough. Patient was admitted for further evaluation of oropharyngeal dysfunction Oropharyngeal Dysphagia gross aspiration on modified barium swallow with aspiration and recent aspiration pneumonia 01/28/19 treated with augmentin as out patient. will malnutrition for PEG tube placement Left lower Jaw pain will get a xray Had bone scan in 2018 there was no lighting up in that area. will consider consulting oral surgery after xray. H/o Carotid artery stenosis Hyperlipidemia will restart statin after PEG tube Depression, anxiety will continue home meds once PEG tube is in. CVA in November 2018 with persistent dysphagia. Pulmonary nodule 9mm noncalcified subpleural nodule on the right follow up with pulmonary as outpateint BPH with large void void residual will get bladder scan prn and st cath if needed continue flomax after PEG tube. Nephrolithiasis no issues at present. COPD, emphysema continue albuterol Protein calorie malnutrition moderate with bitemporal wasting, BMI of 18.6 and albumin of 2.6, 20 lB loss in weigh tin 2 months. Plan/VTE VTE Prophylaxis Ordered?: Yes VS, I&O, [facility] Vital Signs/I&O Vital Signs Date Time Temp Pulse Resp B/P (MAP) Pulse Ox O2 Delivery O2 Flow Rate FiO2 02/13/19 06:22 97.6 68 16 144/69 (94) 98 Room Air Laboratory Data 24H LABS Laboratory Tests 2 02/12/19 19:45: Immature Granulocyte % (Auto) 0.4, Neutrophils (%) (Auto) 80.1H, Lymphocytes (%) (Auto) 10.9L, Monocytes (%) (Auto) 7.1H, Eosinophils (%) (Auto) 1.1, Basophils (%) (Auto) 0.4, Neutrophils # (Auto) 9.1H, Lymphocytes # (Auto) 1.2L, Monocytes # (Auto) 0.8, Eosinophils # (Auto) 0.1, Basophils # (Auto) 0.0, Nucleated Red Blood Cells % (auto) 0.0, Anion Gap 7L, Glomerular Filtration Rate > 60.0, Calcium Level 9.1, Total Creatine Kinase 97, Creatine Kinase MB 1.9, Creatine Kinase MB Relative Index 1.96, Troponin I < 0.02 02/12/19 20:25: Prothrombin Time 13.9, Prothromb Time International Ratio 1.10, Blood Gas Bicarbonate Standard 27.0, Venous Blood pH 7.354, Venous Blood Partial Pressure CO2 55.9H, Venous Blood Partial Pressure O2 36.4, Venous Blood Total Carbon Dioxide 32.2H, Venous Blood HCO3 30.4H, Venous Blood Oxygen Saturation 64.9, Venous Blood Base Excess 3.7H, Lactic Acid Level 0.9 02/13/19 09:49: Nucleated Red Blood Cells % (auto) 0.0, Anion Gap 4L, Glomerular Filtration Rate > 60.0, Calcium Level 8.5L, Magnesium Level 1.8, Total Bilirubin 0.6, Aspartate Amino Transf (AST/SGOT) 20, Alanine Aminotransferase (ALT/SGPT) 16, Alkaline Phosphatase 97, Total Protein 6.7, Albumin 2.8L, Albumin/Globulin Ratio 0.72L CBC/BMP Laboratory Tests 02/12/19 19:45 02/13/19 09:49 Microbiology Microbiology 02/12/19 Blood Culture, Received Pending 02/12/19 Blood Culture, Received Pending AGUILA BAZAN MD Feb 13, 2019 13:39
[2019-02-13] MEDS ORDERED: fentaNYL 100 MCG/2 ML INJECTION (J3010) As Ordered ONE (14:21)
[2019-02-13 15:00] VITALS: BP 142/69
[2019-02-13 15:30] VITALS: BP 141/74
[2019-02-13 16:26] VITALS: BP 122/71
--- NOTE | 2019-02-13 16:54 | REP ---
Four views mandible: 02/13/2019. Indication: Jaw pain. Comparison: 09/29/2018. Findings: There is no acute fracture, subluxation or dislocation. No lytic lesions of the mandible are detected. The paranasal sinuses are clear. Impression: No acute osseous mandibular injury. Electronically Signed by Garland Caraballo DO 02/13/2019 04:46 P
--- NOTE | 2019-02-13 17:44 | ECGEPIP ---
[facility] - ED Test Date: 2019-02-12 Pat Name: CHENTE BROWN Department: Room: [place] [address] Gender: Male Psychiatric Orderly: cheryl : 1950 Requested By: NATALIA MILLER Order Number: [id number] Reading MD: Nora Patino Measurements Intervals Laie Rate: 71 P: 84 MI: 145 QRS: 46 QRSD: 78 T: 37 QT: 387 QTc: 422 Interpretive Statements SINUS RHYTHM NONSPECIFIC T-WAVE ABNORMALITY No prior Electronically Signed on 02-13-2019 17:43:30 EST by Nora Patino
[2019-02-13] MEDS ORDERED: KETOROLAC 30 MG/ML VIAL (J1885) IV PRN (19:30)
[2019-02-13 19:56] VITALS: BP 122/67
[2019-02-13] MEDS: BENZOCAINE 10% 9GM TUBE (ANBESOL) MT SCH (22:06)
[2019-02-14 06:15] VITALS: BP 132/69
[2019-02-14] MEDS: ALBUTEROL SULFATE 2.5 MG/0.5 ML INH NEB SOLN NEB SCH ×2 (08:19→16:37)
--- NOTE | 2019-02-14 08:21 | IPNPDOC ---
Text Note Date of Service The patient was seen on 02/14/19. NOTE No acute events overnight. Minimal pain at tube site. No problems with nausea, emesis, fevers, or drainage around it. It has not been used yet. VSSAF NAD abd - soft, slight tenderness around the tube is appropriate, no drainage A) 68y/o male w/ dysphagia and anorexia s/p CVA. POD#1 s/p PEG placement P) start tube feeds today likely transition over to bolus feeds prior to d/c recommend some home care for initial return home only needs to follow up with me in the office for tube changes or removal tube feeds can be managed by PCP Baudilio Gallego DO VS,Carlos, I+O VSCarlos I+O Laboratory Tests 02/13/19 09:49 Vital Signs Date Time Temp Pulse Resp B/P (MAP) Pulse Ox O2 Delivery O2 Flow Rate FiO2 02/14/19 06:15 96.9 74 14 132/69 (90) 98 Room Air I&O- Last 24 Hours up to 6 AM 02/14/19 06:00 Intake Total 1815 ml Output Total 1800 ml Balance 15 ml URMILA GALLEGO DO Feb 14, 2019 08:21
[2019-02-14] MEDS ORDERED: ASPIRIN 81 MG ENTERIC TAB PO SCH (09:00)
[2019-02-14] MEDS: HEPARIN SOD (PORCINE) 5000 UNITS/ML VIAL SC SCH ×2 (09:35→21:09)
[2019-02-14] MEDS: BENZOCAINE 10% 9GM TUBE (ANBESOL) MT SCH ×3 (09:35→21:10)
--- NOTE | 2019-02-14 14:39 | CR ---
DATE OF CONSULTATION: 02/14/2019 REASON FOR CONSULTATION: Dysphagia. HISTORY OF PRESENT ILLNESS: The patient is a 68-year-old male who had a recent stroke in November 2018. He has had progressive swallowing dysfunction with choking and cough. He has also lost around 25 pounds secondary to the difficulty swallowing. He has had at least two swallowing studies in last three weeks, both of which he failed. That coupled with aspiration pneumonia, he was sent in from the outpatient yesterday by his primary care provider (PCP) to have a feeding tube placed. This morning, he denies any problems with nausea or vomiting. No fevers or chills. No shortness of breath or cough. I explained to him what the feeding tube was. He is completely understanding and willing to have it placed. PAST MEDICAL HISTORY: 1. Hyperlipidemia. 2. Depression. 3. Anxiety. 4. Sciatica. 5. Sinusitis. 6. Kidney stones. PAST SURGICAL HISTORY: 1. Carpal tunnel bilaterally. 2. Cataract on the left. 3. Cystoscopy. 4. Transurethral resection of the prostate (TURP). FAMILY HISTORY: Noncontributory. ALLERGIES: None. SOCIAL HISTORY: Denies drug, alcohol, or tobacco abuse. REVIEW OF SYSTEMS: Pertinent positives and negatives as stated in the history of present illness (HPI). PHYSICAL EXAMINATION: GENERAL: Alert and oriented times three, in no acute distress. VITAL SIGNS: Temperature 97.6, pulse 68, respirations 16, blood pressure 144/69, pulse oximetry 98% on room air. HEENT: Pupils equally round and react to light and accommodation. HEART: S1, S2, regular rate and rhythm. LUNGS: Clear to auscultation bilaterally. ABDOMEN: Soft, nontender, nondistended. No visible scarring in the upper abdomen. EXTREMITIES: No clubbing, cyanosis or edema. LABORATORY DATA: White count 8.5, hemoglobin 11.3, platelets 288. IMAGING STUDIES: Chest x-ray from this morning shows no acute cardiopulmonary process. ASSESSMENT AND PLAN: The patient is a 68-year-old male with dysphagia secondary to recent stroke. Recommendation is to proceed with percutaneous endoscopic gastrostomy (PEG) tube placement. The risks and benefits of the procedure not limited but including bleeding, infection, perforation of the stomach or the esophagus, damage to surrounding structures, the need for further surgery were discussed in detail with the patient. Informed consent was obtained and procedure will be completed in OPP. Postoperatively, we will keep him nothing by mouth. He can still have medications through the tube. Starting tomorrow morning, he can have tube feeds started.
[2019-02-14] MEDS: GABAPENTIN 300 MG CAP PEG SCH ×2 (15:01→21:10)
[2019-02-14] MEDS: TOLTERODINE (DETROL) 2 MG TAB PEG SCH (15:01)
[2019-02-14] MEDS: ASPIRIN 81 MG CHEW TABLET PEG SCH (15:01)
[2019-02-14] MEDS: buPROPion 75 MG TAB PEG SCH ×2 (15:01→21:10)
[2019-02-14] MEDS: busPIRone 10 MG TAB PEG SCH (15:01)
[2019-02-14] MEDS: ATORVASTATIN 20 MG TAB PEG SCH (15:02)
[2019-02-14 16:00] VITALS: BP 128/72
[2019-02-14] MEDS: DONEPEZIL 5 MG TAB PEG SCH (21:09)
[2019-02-14 22:00] VITALS: BP 103/64
--- NOTE | 2019-02-14 22:41 | RO ---
DATE OF PROCEDURE: 02/13/2019 PREOPERATIVE DIAGNOSIS: Dysphagia. POSTOPERATIVE DIAGNOSIS: Dysphagia. PROCEDURE: Percutaneous endoscopic gastrostomy (PEG) tube placement with upper endoscopy. FINDINGS: Slight gastritis and large hiatal hernia. SURGEON: Dr. Reginald Gallego [employer]: None. ANESTHESIA: Intravenous (IV) sedation with 5 mL of 1% lidocaine local. COMPLICATIONS: None. ESTIMATED BLOOD LOSS: 5 mL. INDICATION FOR PROCEDURE: The patient is a 68-year-old male who developed a stroke in November. Since then, he has had progressive dysphagia with a 25-pound weight loss and aspiration pneumonia. Recommendation after repeat failed swallow was for feeding tube placement. Risks and benefits of the procedure not limited to but including bleeding, infection, perforation, damage to surrounding structures and need for further surgery were discussed in detail with the patient. Informed consent was obtained and procedure was planned. DESCRIPTION OF PROCEDURE: The patient was brought back to OPP, after sufficient sedation, the abdomen was sterilely prepped with some chlorhexidine. Next, a time-out was done to confirm proper patient, proper procedure. Next, the endoscope was passed down through the esophagus into the stomach where a large hiatal hernia was identified containing at least half of the stomach. Scope was passed through that into the body of the stomach where there was some mild gastritis. Once the stomach was inflated, I was able to palpate through the abdominal wall as well as transilluminate. I then injected the skin with the local, made an 8 mm incision with an 11 blade scalpel, and then passed the needle from the skin transdermally all the way inside of the stomach under direct visualization. Guidewire was then passed inside, grabbed with a snare and brought out through the mouth. #20-Pashto tube was then passed over top of the guidewire, brought out through the abdominal wall. Bumpers were placed. Scope was then passed back inside the stomach to confirm proper positioning and no bleeding inside of the stomach. Scope was then removed again. The cap was placed on the end of the feeding tube, dressing was placed, thus ending procedure.
[2019-02-15 06:00] VITALS: BP 102/61
[2019-02-15 07:00] LABS: BASO % 0.4 % (0.0-1.0); EOS # 0.2 10^3/uL (0.0-0.5); EOS % 2.1 % (0.0-3.0); HEMATOCRIT 34.4 % (42.0-52.0); HEMOGLOBIN 11.3 g/dl (13.5-17.5); LYMPH # 0.9 10^3/uL (1.5-5.0); LYMPH % 11.6 % (24.0-44.0); MEAN CORPUSCULAR HEMOGLOBIN 31.6 pg (27.0-33.0); MEAN CORPUSCULAR HGB CONC 32.8 g/dl (32.0-36.5); MEAN CORPUSCULAR VOLUME 96.1 fl (80.0-96.0); MONO # 0.5 10^3/uL (0.0-0.8); MONO % 6.6 % (0.0-5.0); NEUTROPHILS # 6.4 10^3/uL (1.5-8.5); NEUTROPHILS % 79.1 % (36.0-66.0); PLATELET COUNT, AUTOMATED 240 10^3/uL (150-450); RED BLOOD COUNT 3.58 10^6/uL (4.30-6.10); WHITE BLOOD COUNT 8.1 10^3/uL (4.0-10.0)
--- NOTE | 2019-02-15 07:12 | IPNPDOC ---
Subjective Date Seen The patient was seen on 02/14/19. Subjective Chief Complaint/HPI Says jaw feels better today after the orogel, PEG feeding started this am. No fever or chills. Patient has acute urinary retention requiring straight cath several times. May have to place a padilla in if needed. Objective Physical Examination General Exam: Positive: Alert, Cooperative, No Acute Distress Eye Exam: Positive: PERRLA, Conjunctiva & lids normal ENT Exam: Positive: Atraumatic, Other ENT (bitemporal wasting) Neck Exam: Positive: Supple; Negative: JVD Chest Exam: Positive: Rhonchi, Wheezing Heart Exam: Positive: Rate Normal, Regular Rhythm, Normal S1, Normal S2; Negative: Murmurs, Rubs Telemetry: Positive: No significant arrhythmia Abdomen Exam: Positive: Normal bowel sounds, Soft; Negative: Tenderness, Hepatospenomegaly Extremity Exam: Negative: Clubbing, Cyanosis, Edema Skin Exam: Positive: Nl turgor and temperature Neuro Exam: Positive: Strength at 5/5 X4 ext, Cranial Nerves 3-12 NL Psych Exam: Positive: Mental status NL Assessment /Plan Assessment Patient is 68 years old male with past medical history of carotid artery sten osis, hyperlipidemia, depression, anxiety , CVA in November 2018, pulmonary nodule, BPH with large void void residual, nephrolithiasis, COPD, emphysema, presented hospital with severe oropharyngeal dysfunction. Patient stated that after stroke in 2019 in November he developed progressive swallowing dysfunction associated with choking and cough. Patient was admitted for further evaluation of oropharyngeal dysfunction Oropharyngeal Dysphagia gross aspiration on modified barium swallow with aspiration and recent aspiration pneumonia 01/28/19 treated with augmentin as out patient. with malnutrition s/p PEG tube placement on 02/13 Left lower Jaw pain will get a xray Had bone scan in 2018 there was no lighting up in that area. xray mandible no abnormality on Orogel seems gina be better. Can refer to oral surgeon as an outpateint. H/o Carotid artery stenosis continue ASA follow up outpatient Hyperlipidemia will restart statin Depression, anxiety will continue home meds CVA in November 2018 with cognitive impairment with persistent dysphagia. gabapentin , asa, donepezil. Pulmonary nodule 9mm noncalcified subpleural nodule on the right follow up with pulmonary as outpatient BPH with large void void residual needing frequent straight cath each time with 500 to 700 cc output. Able to void only about 20 - 30 cc by himself will start tolterodine as flomax cannot be given by PEG tube. Nephrolithiasis no issues at present. COPD, emphysema continue albuterol Protein calorie malnutrition moderate with bitemporal wasting, BMI of 18.6 and albumin of 2.6, 20 lB loss in weigh tin 2 months. Plan/VTE VTE Prophylaxis Ordered?: Yes VS, I&O, 24H, Fishbone Vital Signs/I&O Vital Signs Date Time Temp Pulse Resp B/P (MAP) Pulse Ox O2 Delivery O2 Flow Rate FiO2 02/14/19 06:15 96.9 74 14 132/69 (90) 98 Room Air I&O- Last 24 Hours up to 6 AM 02/14/19 06:00 Intake Total 1815 ml Output Total 1800 ml Balance 15 ml Laboratory Data Microbiology Microbiology 02/12/19 Blood Culture - Preliminary, Resulted No growth after 24 hours . All specim... 02/12/19 Blood Culture - Preliminary, Resulted No growth after 24 hours . All specim... AGUILA BAZAN MD Feb 14, 2019 12:43
[2019-02-15 07:21] LABS: BLOOD UREA NITROGEN 16 MG/DL (7-18); CALCIUM LEVEL 9.1 MG/DL (8.8-10.2); CARBON DIOXIDE LEVEL 32 MEQ/L (21-32); CHLORIDE LEVEL 105 MEQ/L (98-107); CREATININE FOR GFR 0.84 MG/DL (0.70-1.30); GLOMERULAR FILTRATION RATE > 60.0 (>49); GLUCOSE, FASTING 107 MG/DL (70-100); POTASSIUM SERUM 3.6 MEQ/L (3.5-5.1); SODIUM LEVEL 141 MEQ/L (136-145)
[2019-02-15] MEDS: ALBUTEROL SULFATE 2.5 MG/0.5 ML INH NEB SOLN NEB SCH ×3 (07:41→15:13)
[2019-02-15] MEDS: ASPIRIN 81 MG CHEW TABLET PEG SCH (09:47)
[2019-02-15] MEDS: HEPARIN SOD (PORCINE) 5000 UNITS/ML VIAL SC SCH ×2 (09:47→20:47)
[2019-02-15] MEDS: buPROPion 75 MG TAB PEG SCH ×2 (09:48→20:46)
[2019-02-15] MEDS: TOLTERODINE (DETROL) 2 MG TAB PEG SCH (09:48)
[2019-02-15] MEDS: busPIRone 10 MG TAB PEG SCH (09:49)
[2019-02-15] MEDS: ATORVASTATIN 20 MG TAB PEG SCH (09:50)
[2019-02-15] MEDS: GABAPENTIN 300 MG CAP PEG SCH ×2 (09:51→20:46)
[2019-02-15] MEDS: BENZOCAINE 10% 9GM TUBE (ANBESOL) MT SCH ×3 (10:01→20:47)
[2019-02-15 14:00] VITALS: BP 101/55
[2019-02-15 20:00] VITALS: BP 125/68
[2019-02-15] MEDS: DONEPEZIL 5 MG TAB PEG SCH (20:46)
[2019-02-16 06:00] VITALS: BP 117/68
--- NOTE | 2019-02-16 06:54 | IPNPDOC ---
Subjective Date Seen The patient was seen on 02/15/19. Subjective Chief Complaint/HPI No events overnight. continues to require intermittent caths. PEG tube working well Objective Physical Examination General Exam: Positive: Alert, Cooperative, No Acute Distress Eye Exam: Positive: PERRLA, Conjunctiva & lids normal ENT Exam: Positive: Atraumatic, Other ENT (bitemporal wasting) Neck Exam: Positive: Supple; Negative: JVD Chest Exam: Positive: Rhonchi, Wheezing Heart Exam: Positive: Rate Normal, Regular Rhythm, Normal S1, Normal S2; Negative: Murmurs, Rubs Telemetry: Positive: No significant arrhythmia Abdomen Exam: Positive: Normal bowel sounds, Soft; Negative: Tenderness, Hepatospenomegaly Extremity Exam: Negative: Clubbing, Cyanosis, Edema Skin Exam: Positive: Nl turgor and temperature Neuro Exam: Positive: Strength at 5/5 X4 ext, Cranial Nerves 3-12 NL Psych Exam: Positive: Mental status NL Assessment /Plan Assessment Patient is 68 years old male with past medical history of carotid artery stenosis, hyperlipidemia, depression, anxiety , CVA in November 2018, pulmonary nodule, BPH with large void void residual, nephrolithiasis, COPD, emphysema, presented hospital with severe oropharyngeal dysfunction. Patient stated that after stroke in 2019 in November he developed progressive swallowing dysfunction associated with choking and cough. Patient was admitted for further evaluation of oropharyngeal dysfunction Oropharyngeal Dysphagia gross aspiration on modified barium swallow with aspiration and recent aspiration pneumonia 01/28/19 treated with augmentin as out patient. with malnutrition s/p PEG tube placement on 02/13 will change PEG feeding to bolus feeding. Left lower Jaw pain will get a xray Had bone scan in 2018 there was no lighting up in that area. xray mandible no abnormality on Orogel seems gina be better. Can refer to oral surgeon as an outpatient. H/o Carotid artery stenosis continue ASA follow up outpatient Hyperlipidemia will restart statin Depression, anxiety will continue home meds CVA in November 2018 with cognitive impairment with persistent dysphagia. gabapentin , asa, donepezil. Pulmonary nodule 9mm noncalcified subpleural nodule on the right follow up with pulmonary as outpatient BPH with large void void residual needing frequent straight cath each time with 500 to 700 cc output. Able to void only about 20 - 30 cc by himself will start tolterodine as flomax cannot be given by PEG tube. Nephrolithiasis no issues at present. COPD, emphysema continue albuterol Protein calorie malnutrition moderate with bitemporal wasting, BMI of 18.6 and albumin of 2.6, 20 lB loss in weigh tin 2 months. Plan/VTE VTE Prophylaxis Ordered?: Yes VS, I&O, 24H, Fishbone Vital Signs/I&O Vital Signs Date Time Temp Pulse Resp B/P (MAP) Pulse Ox O2 Delivery O2 Flow Rate FiO2 02/15/19 06:00 98.6 72 15 102/61 (75) 98 Room Air I&O- Last 24 Hours up to 6 AM 02/15/19 06:00 Intake Total 2412 ml Output Total 2300 ml Balance 112 ml Laboratory Data 24H LABS Laboratory Tests 2 02/15/19 06:48: Immature Granulocyte % (Auto) 0.2, Neutrophils (%) (Auto) 79.1H, Lymphocytes (%) (Auto) 11.6L, Monocytes (%) (Auto) 6.6H, Eosinophils (%) (Auto) 2.1, Basophils (%) (Auto) 0.4, Neutrophils # (Auto) 6.4, Lymphocytes # (Auto) 0.9L, Monocytes # (Auto) 0.5, Eosinophils # (Auto) 0.2, Basophils # (Auto) 0.0, Nucleated Red Blood Cells % (auto) 0.0 CBC/BMP Laboratory Tests 02/15/19 06:48 Microbiology Microbiology 02/12/19 Blood Culture - Preliminary, Resulted No Growth after 48 hours. All Specime... 02/12/19 Blood Culture - Preliminary, Resulted No Growth after 48 hours. All Specime... AGUILA BAZAN MD Feb 15, 2019 07:14
[2019-02-16] MEDS: ALBUTEROL SULFATE 2.5 MG/0.5 ML INH NEB SOLN NEB SCH ×2 (07:54)
[2019-02-16] MEDS: BENZOCAINE 10% 9GM TUBE (ANBESOL) MT SCH (09:04)
[2019-02-16] MEDS: HEPARIN SOD (PORCINE) 5000 UNITS/ML VIAL SC SCH (09:04)
[2019-02-16] MEDS: TOLTERODINE (DETROL) 2 MG TAB PEG SCH (09:05)
[2019-02-16] MEDS: buPROPion 75 MG TAB PEG SCH (09:05)
[2019-02-16] MEDS: ATORVASTATIN 20 MG TAB PEG SCH (09:06)
[2019-02-16] MEDS: GABAPENTIN 300 MG CAP PEG SCH (09:07)
[2019-02-16] MEDS: ASPIRIN 81 MG CHEW TABLET PEG SCH (09:07)
[2019-02-16] MEDS: busPIRone 10 MG TAB PEG SCH (09:07)
[2019-02-16] MEDS ORDERED: DETR1TAB5 PEG (09:21)
[2019-02-16] MEDS ORDERED: ASPI81CH8 PEG (09:21)
[2019-02-16] MEDS ORDERED: BUPR75TA5 PEG (09:21)
[2019-02-16] MEDS ORDERED: Benzocaine Gel MT (09:24)
[2019-02-16] MEDS ORDERED: DOXA2TAB3 PO (12:51)
--- NOTE | 2019-02-17 11:54 | DS.PDOC ---
Discharge Summary General Date of Admission Feb 12, 2019 at 22:32 Date of Discharge 02/16/19 Discharge Summary PROCEDURES PERFORMED DURING STAY: PEG tube placement DISCHARGE DIAGNOSES: Oropharyngeal dysphagia due to stroke s/p PEG tube plcement Protein calorie malnutrition Acute on chronic urinary retention started self cath Left lower law pain SECONDARY DIAGNOSIS: Carotid artery stenosis, hyperlipidemia, depression, anxiety , CVA in November 2018, pulmonary nodule, BPH with large void void residual, nephrolithiasis, COPD, emphysema, Mild cognitive impairment. COMPLICATIONS/CHIEF COMPLAINT: Anorexia, Dysphagia As Late Effect Of Cva. HISTORY OF PRESENT ILLNESS: See history and physical HOSPITAL COURSE: Patient is 68 years old male with past medical history of carotid artery stenosis, hyperlipidemia, depression, anxiety , CVA in November 2018, pulmonary nodule, BPH with large void void residual, nephrolithiasis, [place] PD, emphysema, presented hospital with severe oropharyngeal dysfunction. Patient stated that after stroke in 2019 in November he developed progressive swallowing dysfunction associated with choking and cough. Patient was admitted for further evaluation of oropharyngeal dysfunction Oropharyngeal Dysphagia gross aspiration on modified barium swallow with aspiration and recent aspiration pneumonia 01/28/19 treated with augmentin as out patient. Current was on levefloxacin which he can finish the course at home. with malnutrition s/p PEG tube placement on 02/13 bolus feeding jevity 1.5 4 to 5 cans a day with free water 90 cc before and 90 cc after each feed. Left lower Jaw pain Had bone scan in 2017 there was no lighting up in that area. xray mandible no abnormality on Orogel seems to be better. Can refer to oral surgeon as an outpatient. Acute on chronic urinary retention bladder scan had showed 700 cc, straight cath produced 600 cc patient used to self cath at home last year Self cathing was resumed in hospital and patient instructed to continue at home doxazocin in place of flomax( cannot be given through PEG tube) follow up urology BPH with large void void residual needing frequent straight cath each time with 500 to 700 cc output. Able to void only about 20 - 30 cc by himself will give doxazocin in place of flomax H/o Carotid artery stenosis continue ASA follow up outpatient Hyperlipidemia statin Depression, anxiety will continue home meds CVA in November 2018 with cognitive impairment with persistent dysphagia. gabapentin , asa, donepezil. Pulmonary nodule 9mm noncalcified subpleural nodule on the right follow up with pulmonary as outpatient Nephrolithiasis no issues at present. COPD, emphysema continue albuterol Protein calorie malnutrition moderate with bitemporal wasting, BMI of 18.6 and albumin of 2.6, 20 lB loss in weigh tin 2 months. DISCHARGE MEDICATIONS: Please see below. ALLERGIES: Please see below. PHYSICAL EXAMINATION ON DISCHARGE: VITAL SIGNS: Please see below. General Exam: Positive: Alert, Cooperative, No Acute Distress Eye Exam: Positive: PERRLA, Conjunctiva & lids normal ENT Exam: Positive: Atraumatic, Other ENT (bitemporal wasting) Neck Exam: Positive: Supple; Negative: JVD Chest Exam: Positive: Rhonchi, Wheezing Heart Exam: Positive: Rate Normal, Regular Rhythm, Normal S1, Normal S2; Negative: Murmurs, Rubs Telemetry: Positive: No significant arrhythmia Abdomen Exam: Positive: Normal bowel sounds, Soft; Negative: Tenderness, Hepatospenomegaly Extremity Exam: Negative: Clubbing, Cyanosis, Edema Skin Exam: Positive: Nl turgor and temperature Neuro Exam: Positive: Strength at 5/5 X4 ext, Cranial Nerves 3-12 NL Psych Exam: Positive: Mental status NL LABORATORY DATA: Please see below. ACTIVITY: [As tolerated]. DIET: Tube feeding DISPOSITION: Home, Self-Care. DISCHARGE INSTRUCTIONS: PMD in 1 week Follow up with urology for urinary retention Follow up with Speech therapy DISCHARGE CONDITION: [Stable]. TIME SPENT ON DISCHARGE: 35 minutes. Vital Signs/I&Os Vital Signs Date Time Temp Pulse Resp B/P (MAP) Pulse Ox O2 Delivery O2 Flow Rate FiO2 02/16/19 06:00 99.0 65 18 117/68 (84) 97 Room Air I&O- Last 24 Hours up to 6 AM 02/17/19 06:00 Intake Total 535 ml Output Total 0 ml Balance 535 ml Microbiology Microbiology 02/12/19 Blood Culture - Preliminary, Resulted No Growth after 72 hours. All specime... 02/12/19 Blood Culture - Preliminary, Resulted No Growth after 72 hours. All specime... Discharge Medications Scheduled Aspirin (Children's Aspirin) 81 Mg Tab.chew, 81 MG PEG DAILY Atorvastatin Calcium (Atorvastatin Calcium) 40 Mg Tab, 40 MG PO DAILY, (Reported) Bupropion HCl (Bupropion HCl) 75 Mg Tablet, 75 MG PEG BID Buspirone HCl (Buspirone HCl) 10 Mg Tab, 10 MG PO DAILY, (Reported) Donepezil HCl (Donepezil HCl) 10 Mg Tablet, 10 MG PO QHS, (Reported) Doxazosin Mesylate (Doxazosin) 2 Mg Tablet, 2 MG PO DAILY Gabapentin (Gabapentin) 300 Mg Capsule, 300 MG PO BID, (Reported) Levofloxacin (Levaquin) 500 Mg Tablet, 500 MG PO DAILY, (Reported) [Benzocaine Gel] 1 DOSE/9 GM GEL, 0 DOSE MT TID Scheduled PRN Albuterol Sulf (Albuterol Sulfate) 2.5 Mg/3 Ml Vial.neb, 2.5 MG INH Q4H PRN for COUGH, (Reported) Meclizine HCl (Meclizine HCl) 25 Mg Tablet, 25 MG PO Q8H PRN for DIZZINESS, (Reported) Allergies Coded Allergies: No Known Allergies (Unverified , 09/29/18) AGUILA BAZAN MD Feb 17, 2019 11:54
== END 2019-02-16 12:30 | disposition home or self-care (01) | DRG 57 ==
LOC: M ED 18:47 → M ED INP 22:32 → M MS4PR 02-13 00:53 → M MS5PR 02-14 15:25
PROVIDERS: ADMIT Internal Medicine; ATTEND Internal Medicine Nephrology
PROC: 0DH63UZ Insertion of Feeding Device into Stomach, Percutaneous Approach (ICD-10-PCS; principal; 2019-02-13 13:30)
DX: I69.391 Dysphagia following cerebral infarction (principal); R64 Cachexia; E44.0 Moderate protein-calorie malnutrition; Z68.1 Body mass index [BMI] 19.9 or less, adult; R13.12 Dysphagia, oropharyngeal phase; R63.0 Anorexia; R33.9 Retention of urine, unspecified; E78.5 Hyperlipidemia, unspecified; F41.9 Anxiety disorder, unspecified; F32.9 Major depressive disorder, single episode, unspecified; R91.1 Solitary pulmonary nodule; N40.0 Benign prostatic hyperplasia without lower urinary tract symptoms; J43.9 Emphysema, unspecified; I65.8 Occlusion and stenosis of other precerebral arteries; Z79.899 Other long term (current) drug therapy; Z79.82 Long term (current) use of aspirin

== ENCOUNTER → 2019-02-12 | Outpatient (CLI) | payer MEDICARE, MEDICAID ==
[~2019-02-12] MED LIST changes: +ALBU83IN INH; +ASPI-161 PO; -ATOR40TA75 PEG; +ATOR40TA75 PO; -BUSP10TA PEG; +BUSP10TA PO; +DONE10TA90 PO; +GABA-843 PO; +LEVA1TAB2 PO; +MECL-68 PO; +NAPR500T6 PO
--- NOTE | 2019-02-14 09:10 | REP ---
Modified barium swallow: History: Dysphasia. Procedure: Lateral fluoroscopy was performed in conjunction with the swallowing therapist who administered various consistencies of barium labeled material for ingestion. Oropharyngeal fluoroscopy was acquired. 0.5 minutes of fluoroscopy time was utilized. Findings: The initial nectar consistency material labeled with barium was given as a single spoonful. There was pooling of this material in the hypopharynx and delay in swallowing resulted in laryngeal penetration and coughing after which barium was seen labeling the subglottic anterior wall of the trachea indicating aspiration. This recurred with an additional spoonful of liquid barium in chin tuck position. Impression: Endotracheal aspiration productive of cough reflex. Electronically Signed by Emir Finney MD 02/14/2019 02:22 P
== END ==
LOC: M ST 13:41
PROVIDERS: ATTEND Family Medicine
DX: R13.12 Dysphagia, oropharyngeal phase (principal)

== ENCOUNTER → 2019-02-21 | Outpatient (REF) | payer MEDICARE, MEDICAID ==
[~2019-02-21] MED LIST changes: +ALBU83IN INH; +ASPI-161 PO; +ASPI81CH8 PEG; +BUPR75TA5 PEG; +Benzocaine Gel MT; +DETR1TAB5 PEG; +DONE10TA90 PO; +DOXA2TAB3 PO; +GABA-843 PO; +LEVA1TAB2 PO; +MECL-68 PO; +NAPR500T6 PO
[2019-02-21 19:33] LABS: ALBUMIN 3.5 GM/DL (3.2-5.2); ALT/SGPT 28 U/L (12-78); BILIRUBIN,TOTAL 0.8 MG/DL (0.2-1.0); BLOOD UREA NITROGEN 35 MG/DL (7-18); CALCIUM LEVEL 9.4 MG/DL (8.8-10.2); CARBON DIOXIDE LEVEL 34 MEQ/L (21-32); CHLORIDE LEVEL 101 MEQ/L (98-107); CREATININE FOR GFR 0.98 MG/DL (0.70-1.30); GLOMERULAR FILTRATION RATE > 60.0 (>49); GLUCOSE, FASTING 99 MG/DL (70-100); POTASSIUM SERUM 4.2 MEQ/L (3.5-5.1); PREALBUMIN 20.3 MG/DL (20.0-40.0); SODIUM LEVEL 140 MEQ/L (136-145); TOTAL PROTEIN 7.4 GM/DL (6.4-8.2)
== END ==
LOC: M SFHCLERA 15:09
PROVIDERS: ATTEND Family Medicine
DX: Z93.1 Gastrostomy status (principal)

== ENCOUNTER 2019-02-28 11:21 | Inpatient (IN) | payer MEDICARE, MEDICAID ==
[~2019-02-28] VITALS: Ht 152.4 cm; Wt 46.0 kg
[~2019-02-28 11:21] MED LIST changes: +ATOR40TA75 PEG; -ATOR40TA75 PO; +BUSP10TA PEG; -BUSP10TA PO; +DONE10TA90 PEG; -DONE10TA90 PO
[2019-02-28] MEDS ORDERED: DOXA1TAB41 PEG (11:31)
[2019-02-28 12:21] LABS: BASO % 0.2 % (0.0-1.0); HEMOGLOBIN 11.4 g/dl (13.5-17.5); LYMPH # 0.8 10^3/uL (1.5-5.0); LYMPH % 7.8 % (24.0-44.0); MEAN CORPUSCULAR HEMOGLOBIN 31.7 pg (27.0-33.0); MEAN CORPUSCULAR HGB CONC 33.5 g/dl (32.0-36.5); MEAN CORPUSCULAR VOLUME 94.4 fl (80.0-96.0); MONO # 0.8 10^3/uL (0.0-0.8); MONO % 7.8 % (0.0-5.0); NEUTROPHILS # 8.3 10^3/uL (1.5-8.5); PLATELET COUNT, AUTOMATED 213 10^3/uL (150-450); WHITE BLOOD COUNT 9.9 10^3/uL (4.0-10.0)
[2019-02-28 12:46] LABS: ALBUMIN 3.2 GM/DL (3.2-5.2); ALT/SGPT 23 U/L (12-78); BILIRUBIN,TOTAL 0.5 MG/DL (0.2-1.0); BLOOD UREA NITROGEN 33 MG/DL (7-18); CALCIUM LEVEL 9.4 MG/DL (8.8-10.2); CARBON DIOXIDE LEVEL 32 MEQ/L (21-32); CHLORIDE LEVEL 101 MEQ/L (98-107); CREATININE FOR GFR 1.06 MG/DL (0.70-1.30); GLOMERULAR FILTRATION RATE > 60.0 (>49); GLUCOSE, FASTING 95 MG/DL (70-100); POTASSIUM SERUM 4.1 MEQ/L (3.5-5.1); SODIUM LEVEL 138 MEQ/L (136-145); TOTAL PROTEIN 6.7 GM/DL (6.4-8.2)
[2019-02-28 13:10] LABS: CK-MB VALUE MASS 1.6 NG/ML (<3.6); CPK CREATINE PHOSPHOKINASE 56 U/L (39-308); MB/CK RELATIVE INDEX 2.86 (< OR =4); THYROID STIMULATING HORMONE 0.693 uIU/ML (0.358-3.740); TROPONIN I < 0.02 NG/ML (< 0.10)
[2019-02-28] MEDS ORDERED: NS 1,000 ML IV ONE (13:15)
--- NOTE | 2019-02-28 13:16 | REP ---
Clinical: Dizziness . Comparison: 02/12/2019. Technique: PA and lateral. Findings: The mediastinum and cardiac silhouette are normal. The lung arceo demonstrate chronic interstitial changes without acute consolidation, effusion, or pneumothorax. The skeletal structures are intact and normal. Impression: 1. No acute cardiopulmonary process. Electronically Signed by Rene Kerr MD 02/28/2019 01:07 P
--- NOTE | 2019-02-28 13:34 | REP ---
CT brain: 02/28/2019. Indication: Dizziness. Comparison: None. Technique: Unenhanced axial CT images of the brain were obtained from skull base to vertex with coronal reconstructions provided. Findings: There is no acute intracranial hemorrhage, acute cortical infarction, mass effect or hydrocephalous. Punctate right parietal region hyperdensities are present most consistent with calcification of cortical veins. Mild diffuse volume loss is present. Minimal patchy areas of white matter hypoattenuation are present within the cerebral hemispheres. There is no significant fluid within the visualized paranasal sinuses/mastoid air cells. Impression: No acute intracranial process. Volume loss and mild sequelae of chronic microangiopathic ischemic disease. Electronically Signed by Garland Caraballo DO 02/28/2019 01:26 P
[2019-02-28] MEDS ORDERED: BUPR75TA5 PEG (14:49)
[2019-02-28] MEDS ORDERED: ASPI81CH33 PEG (14:49)
[2019-02-28] MEDS: NS 1,000 ML IV SCH (15:12)
--- NOTE | 2019-02-28 15:18 | REP ---
CT facial bones: 02/28/2019. Indication: Left jaw pain. Comparison: 09/29/2018. Technique: Unenhanced axial CT images of the facial bones were performed with coronal and sagittal reconstructions provided. Findings: There is no acute fracture, subluxation or dislocation. No lytic or blastic lesions are present. No abnormal fluid collections are present within the soft tissues to suggest an abscess. The paranasal sinuses and mastoid air cells are clear. Impression: No acute osseous pathology of the facial bones. Electronically Signed by Garland Caraballo DO 02/28/2019 03:10 P
--- NOTE | 2019-02-28 15:37 | HPEPDOC ---
[facility] Medical History & Physical Date of Admission Feb 28, 2019 Date of Service: Feb 28, 2019 Attending Physician: SHANE ALFORD MD History and Physical CHIEF COMPLAINT: dizziness and headache HISTORY OF PRESENT ILLNESS: 68-year-old male with past medical history of COPD, hyperlipidemia and CVA with subsequent dysphagia and PEG tube placement, presents from home with dizziness and headache which started earlier today. He had a stroke in November 2018, subsequent admission in December for aspiration pneumonia, followed by placement of PEG tube 2 weeks ago. He lives with his brother, reportedly he has been getting Jevity bolus feeds 4 times a day without any free water flushes. As per patient, he was never advised to take free water flushes. He has no other complaints at this time, denies any shortness of breath, chest pain, nausea, vomiting, abdominal pain, diarrhea or constipation. In the ED is found to have significant orthostatic hypotension, received 1 L normal saline bolus. 10 point review of system is negative except for above PAST MEDICAL HISTORY: 1. COPD. 2. , Hyperlipidemia. 3. CVA. PAST SURGICAL HISTORY: 1. PEG tube placement. 2. Jaw bone removal. SOCIAL HISTORY: Smokes 3-4 packs per day for over 50 years, quit 2 months ago Denies alcohol use. Denies drug use FAMILY HISTORY: Positive for heart disease ALLERGIES: Please see below. HOME MEDICATIONS: Please see below. PHYSICAL EXAMINATION: VITAL SIGNS: Please see below. GENERAL: No distress, frail, cachectic HEENT: Normocephalic, atraumatic, very dry mucous membranes NECK: Supple CARDIOVASCULAR EXAMINATION: S1, S2, no murmurs RESPIRATORY EXAMINATION: Diminished, poor air movement, no wheezing ABDOMINAL EXAMINATION: Soft, nontender, nondistended, positive bowel sounds, PEG tube in place EXTREMITIES: Range of motion intact SKIN: No rash NEUROLOGICAL EXAMINATION: Alert and oriented 3, no focal deficits PSYCHIATRIC EXAMINATION: Calm and cooperative LABORATORY DATA: See below. IMAGING: CT head and chest x-ray negative for acute pathology MICROBIOLOGY: Please see below. ASSESSMENT: 68-year-old male with past medical history of COPD, CVA with subsequent dysphagia and PEG tube placement and hyperlipidemia presents with orthostatic hypotension secondary to lack of free water flushes via PEG tube. PLAN: 1. Orthostatic hypotension. Status post 1 L normal saline bolus in the ED, continue normal saline 80 mL per hour, continue home Jevity bolus feeds 4 times a day along with free water flushes of 60 mL every 6 hours. Recheck orthostatic BPs in the morning 2. COPD Stable, continue home regimen. 3. Hyperlipidemia. Continue statin. 4. CVA. Continue aspirin and statin DVT prophylaxis: Heparin subcutaneous GI prophylaxis: Not needed Vital Signs Vital Signs Date Time Temp Pulse Resp B/P (MAP) Pulse Ox O2 Delivery O2 Flow Rate FiO2 02/28/19 13:30 62 18 119/68 (85) 100 Room Air 02/28/19 12:23 96.4 Laboratory Data Labs 24H Laboratory Tests 2 02/28/19 12:08: Immature Granulocyte % (Auto) 0.2, Neutrophils (%) (Auto) 84.0H, Lymphocytes (%) (Auto) 7.8L, Monocytes (%) (Auto) 7.8H, Eosinophils (%) (Auto) 0.0, Basophils (%) (Auto) 0.2, Neutrophils # (Auto) 8.3, Lymphocytes # (Auto) 0.8L, Monocytes # (Auto) 0.8, Eosinophils # (Auto) 0.0, Basophils # (Auto) 0.0, Nucleated Red Blood Cells % (auto) 0.0, Anion Gap 5L, Glomerular Filtration Rate > 60.0, Calcium Level 9.4, Total Bilirubin 0.5, Aspartate Amino Transf (AST/SGOT) 20, Alanine Aminotransferase (ALT/SGPT) 23, Alkaline Phosphatase 107, Total Creatine Kinase 56, Creatine Kinase MB 1.6, Creatine Kinase MB Relative Index 2.86, Troponin I < 0.02, Total Protein 6.7, Albumin 3.2, Albumin/Globulin Ratio 0.91L, Thyroid Stimulating Hormone (TSH) 0.693 CBC/BMP Laboratory Tests 02/28/19 12:08 Home Medications Scheduled Aspirin (Aspirin) 81 Mg Tab.chew, 81 MG PEG DAILY Atorvastatin Calcium (Atorvastatin Calcium) 40 Mg Tab, 40 MG PEG DAILY Bupropion HCl (Bupropion HCl) 75 Mg Tablet, 75 MG PEG BID Buspirone HCl (Buspirone HCl) 10 Mg Tab, 10 MG PEG BID Donepezil HCl (Donepezil HCl) 10 Mg Tablet, 10 MG PEG QHS Doxazosin Mesylate (Doxazosin Mesylate) 2 Mg Tablet, 2 MG PEG DAILY Scheduled PRN Albuterol Sulf (Albuterol Sulfate) 2.5 Mg/3 Ml Vial.neb, 2.5 MG INH Q4H PRN for COUGH Meclizine HCl (Meclizine HCl) 25 Mg Tablet, 25 MG PO Q8H PRN for DIZZINESS Allergies Coded Allergies: No Known Allergies (Unverified , 09/29/18) A-FIB/CHADSVASC A-FIB History Current/History of A-Fib/PAF?: No SHANE ALFORD MD Feb 28, 2019 15:37
[2019-02-28] MEDS ORDERED: ALBUTEROL SULFATE 2.5 MG/0.5 ML INH NEB SOLN INH PRN (15:45)
[2019-02-28 15:51] VITALS: BP 130/71
--- NOTE | 2019-02-28 20:40 | REPVR ---
PROCEDURE INFORMATION: Exam: MR Head Without Contrast Exam date and time: 02/28/2019 7:44 PM Age: 68 years old Clinical indication: Altered mental status/memory loss and weakness, extremity; Bilateral; Confusion or disorientation; Patient HX: Confusion/ weakness; Additional info: R/O CVA TECHNIQUE: Imaging protocol: MR of the head without contrast. COMPARISON: CT Head without contrast 02/28/2019 1:01 PM FINDINGS: Age related volume loss. Major vascular flow voids at the skull base are preserved. No extra-axial fluid collection. No midline shift or intracranial mass effect. Mild nonspecific white matter gliosis, probable chronic microvascular ischemia. Tiny focus of mildly increased diffusion weighted signal at the high left frontoparietal junction. Minimal paranasal sinus disease. Minimal right mastoid effusion. IMPRESSION: Suspect tiny acute/early subacute ischemic infarct at the high left frontoparietal junction. Electronically signed by: Steve Leos On 02/28/2019 20:40:23 PM
[2019-02-28] MEDS ORDERED: BENZOCAINE 10% 9GM TUBE (ANBESOL) TOP PRN (21:15)
[2019-02-28] MEDS: busPIRone 10 MG TAB PEG SCH (21:45)
[2019-02-28] MEDS: buPROPion 75 MG TAB PEG SCH (21:46)
[2019-02-28] MEDS: ACETAMINOPHEN TAB 650MG DOSE (2X325MG) PEG PRN (21:46)
[2019-02-28] MEDS: DONEPEZIL 5 MG TAB PEG SCH (21:46)
[2019-02-28] MEDS: HEPARIN SOD (PORCINE) 5000 UNITS/ML VIAL SC SCH (21:47)
[2019-02-28 22:00] VITALS: BP_SYST 105; BP_SYST 119; BP_SYST 89; BP_SYST 93; BP_DIAS 51; BP_DIAS 56; BP_DIAS 64
[2019-02-28] MEDS ORDERED: DIPYRIDAMOLE/ASA (AGGRENOX) 200MG/25MG CAPCR GT SCH (22:15)
[2019-02-28 22:40] LABS: CHOLESTEROL LEVEL 147 MG/DL (<200); CHOLESTEROL RISK RATIO 2.409 (<5); HDL CHOLESTEROL 61 MG/DL (>40); LDL CHOLESTEROL 73 MG/DL (<100); NON-HDL-C 86 MG/DL; TRIGLYCERIDES LEVEL 67 MG/DL (<150)
[2019-02-28 22:56] LABS: HEMOGLOBIN A1c 6.1 %
--- NOTE | 2019-02-28 23:35 | REPVR ---
PROCEDURE INFORMATION: Exam: US Duplex Bilateral Extracranial Arteries Exam date and time: 02/28/2019 11:21 PM Age: 68 years old Clinical indication: Other: CVA TECHNIQUE: Imaging protocol: Real-time Duplex ultrasound scan of the bilateral carotid and vertebral arteries combining garcia scale, color Doppler and spectral waveform analysis. Bilateral exam. COMPARISON: CT Head without contrast 02/28/2019 1:01 PM FINDINGS: Right common carotid artery: Moderate to severe heterogeneous plaque at the right common carotid bifurcation. Peak systolic velocity of the right common carotid artery is 89 cm/s. Right internal carotid artery: Moderate to severe heterogeneous plaque at the right carotid bulb. Peak systolic velocity of the right internal carotid artery is 81 cm/s. Right ICA/CCA ratio: Right ICA/CCA ratio is 0.9. Right external carotid artery: Mild to moderate heterogeneous plaque at the right ECA. Right vertebral artery: Unremarkable. Antegrade flow Left common carotid artery: Severe heterogeneous plaque involving the left common carotid artery greater distally. Peak systolic velocity of the left common carotid artery is 54 cm/s. Left internal carotid artery: Moderate to severe heterogeneous plaque at the left carotid lobe. Peak systolic velocity of the left internal carotid artery is 71 cm/s. Left ICA/CCA ratio: Left ICA/CCA ratio is 1.3. Left external carotid artery: Moderate to severe heterogeneous plaque at the left external carotid artery proximally. Left vertebral artery: Unremarkable. Antegrade flow. IMPRESSION: No elevated velocity, however there is extensive heterogeneous plaque formation involving the bilateral proximal ICAs and further evaluation with CTA or MRA may be considered. REFERENCE: Carotid Stenosis Reference using SRU criteria: Mild: less than 50% stenosis. ICA PSV is less than 125 cm/second and plaque or intimal thickening is visible. Moderate: 50-69% stenosis. ICA PSV is 125 to 230 cm/second and plaque is visible. Severe: 70-94% stenosis. ICA PSV is more than 230 cm/second and visible plaque and lumen narrowing are seen. Near occlusion: 95-99% stenosis. ICA PSV is variable and significant plaque and luminal narrowing are seen. Occluded: 100% stenosis. No flow identified. Electronically signed by: Steve Leos On 02/28/2019 23:35:33 PM
[2019-03-01] MEDS: NS 1,000 ML IV SCH ×3 (03:15→21:15)
[2019-03-01 06:00] VITALS: BP_SYST 100; BP_SYST 120; BP_SYST 122; BP_SYST 96; BP_DIAS 53; BP_DIAS 55; BP_DIAS 58; BP_DIAS 60
[2019-03-01] MEDS: ACETAMINOPHEN TAB 650MG DOSE (2X325MG) PEG PRN ×3 (06:12→23:57)
[2019-03-01 06:18] LABS: HEMATOCRIT 31.8 % (42.0-52.0); HEMOGLOBIN 10.4 g/dl (13.5-17.5); MEAN CORPUSCULAR HEMOGLOBIN 31.4 pg (27.0-33.0); MEAN CORPUSCULAR HGB CONC 32.7 g/dl (32.0-36.5); MEAN CORPUSCULAR VOLUME 96.1 fl (80.0-96.0); PLATELET COUNT, AUTOMATED 178 10^3/uL (150-450); RED BLOOD COUNT 3.31 10^6/uL (4.30-6.10)
[2019-03-01 06:49] LABS: ALBUMIN 2.7 GM/DL (3.2-5.2); ALT/SGPT 20 U/L (12-78); BILIRUBIN,TOTAL 0.7 MG/DL (0.2-1.0); BLOOD UREA NITROGEN 23 MG/DL (7-18); CALCIUM LEVEL 8.6 MG/DL (8.8-10.2); CARBON DIOXIDE LEVEL 29 MEQ/L (21-32); CHLORIDE LEVEL 109 MEQ/L (98-107); CREATININE FOR GFR 0.79 MG/DL (0.70-1.30); GLOMERULAR FILTRATION RATE > 60.0 (>49); GLUCOSE, FASTING 86 MG/DL (70-100); MAGNESIUM LEVEL 2.1 MG/DL (1.8-2.4); POTASSIUM SERUM 3.9 MEQ/L (3.5-5.1); SODIUM LEVEL 142 MEQ/L (136-145); TOTAL PROTEIN 6.1 GM/DL (6.4-8.2)
[2019-03-01] MEDS ORDERED: NS 500 ML IV ONE (08:30)
[2019-03-01] MEDS ORDERED: ASPIRIN 81 MG CHEW TABLET PEG SCH (09:00)
[2019-03-01] MEDS ORDERED: ASPIRIN 325 MG TAB GT SCH (09:00)
[2019-03-01] MEDS ORDERED: ATORVASTATIN 20 MG TAB PEG SCH (09:00)
[2019-03-01] MEDS: DOXAZOSIN MESYLATE 1 MG TAB PEG SCH (10:06)
[2019-03-01] MEDS: busPIRone 10 MG TAB PEG SCH ×2 (10:06→21:15)
[2019-03-01] MEDS: buPROPion 75 MG TAB PEG SCH ×2 (10:06→21:15)
[2019-03-01] MEDS: ATORVASTATIN 20 MG TAB PEG SCH (10:06)
[2019-03-01] MEDS: HEPARIN SOD (PORCINE) 5000 UNITS/ML VIAL SC SCH ×2 (10:07→21:16)
[2019-03-01 14:00] VITALS: BP_SYST 106; BP_SYST 110; BP_SYST 111; BP_SYST 126; BP_DIAS 55; BP_DIAS 56; BP_DIAS 59; BP_DIAS 62
--- NOTE | 2019-03-01 14:50 | ECGEPIP ---
[facility] - ED Test Date: 2019-02-28 Pat Name: CHENTE BROWN Department: Room: - Gender: Male [employer]: CT : 1950 Requested By: SAGAR Driscoll PA-C Order Number: [id number] Reading MD: Juan Lizarraga Measurements Intervals [place] Rate: 68 P: -89 [place]: 107 QRS: 64 QRSD: 72 T: 88 QT: 409 QTc: 438 Interpretive Statements JUNCTIONAL RHYTHM Baseline artifact affects interpretation Electronically Signed on 03-01-2019 14:50:37 EST by Juan Lizarraga
[2019-03-01] MEDS: DONEPEZIL 5 MG TAB PEG SCH (21:15)
[2019-03-01 22:00] VITALS: BP 106/55
--- NOTE | 2019-03-01 22:08 | IPNPDOC ---
Date Seen The patient was seen on 03/01/19. Progress Note HISTORY OF PRESENT ILLNESS: 68-year-old male with past medical history of COPD, hyperlipidemia and CVA with subsequent dysphagia and PEG tube placement, presents from home with dizziness and headache which started earlier today. He had a stroke in November 2018, subsequent admission in December for aspiration pneumonia, followed by placement of PEG tube 2 weeks ago. He lives with his brother, reportedly he has been getting Jevity bolus feeds 4 times a day without any free water flushes. As per patient, he was never advised to take free water flushes. He has no other complaints at this time, denies any shortness of breath, chest pain, nausea, vomiting, abdominal pain, diarrhea or constipation. In the ED is found to have significant orthostatic hypotension, received 1 L normal saline bolus. 03/01/19 Patient found to have small acute/subacute CVA on MRI, likely in watershed zone due to transient hypotension/hypoperfusion. Patient remains orthostatic today, IV fluids & free water flushes have been increased. Patient currently asymptomatic, without any complaints. He denies any dizziness, headache, SOB, CP, N/V/D or abdominal pain. 10 point review of system is negative except for above PHYSICAL EXAMINATION: VITAL SIGNS: Please see below. GENERAL: No distress, frail, cachectic HEENT: Normocephalic, atraumatic, moist mucous membranes NECK: Supple CARDIOVASCULAR EXAMINATION: S1, S2, no murmurs RESPIRATORY EXAMINATION: Diminished, poor air movement, no wheezing ABDOMINAL EXAMINATION: Soft, nontender, nondistended, positive bowel sounds, PEG tube in place EXTREMITIES: Range of motion intact SKIN: No rash NEUROLOGICAL EXAMINATION: Alert and oriented 3, no focal deficits PSYCHIATRIC EXAMINATION: Calm and cooperative LABORATORY DATA: See below. IMAGING: CT head and chest x-ray negative for acute pathology MICROBIOLOGY: Please see below. ASSESSMENT: 68-year-old male with past medical history of COPD, CVA with subsequent dysphagia and PEG tube placement and hyperlipidemia presents with orthostatic hypotension secondary to lack of free water flushes via PEG tube. PLAN: 1. Orthostatic hypotension. remains orthostatic today, increase normal saline to 100 mL per hour, continue home Jevity bolus feeds 4 times a day, increase free water flushes of 60 mL every 4 hours. Recheck orthostatic BPs in the morning 2. COPD Stable, continue home regimen. 3. Hyperlipidemia. Continue statin. 4. CVA. New acute/subacte CVA noted on MRI, likely due to transient hypoten urban/hypoperfusion w/ CVA in watershed zone. Carotid doppler negative, continue aspirin and statin DVT prophylaxis: Heparin subcutaneous GI prophylaxis: Not needed VS, I&O, 24H, Fishbone Vital Signs/I&O Vital Signs Date Time Temp Pulse Resp B/P (MAP) Pulse Ox O2 Delivery O2 Flow Rate FiO2 03/01/19 14:00 98.1 66 18 106/56 (73) 98 02/28/19 15:51 Room Air I&O- Last 24 Hours up to 6 AM 03/01/19 06:00 Intake Total 2480 ml Output Total 800 ml Balance 1680 ml Laboratory Data 24H LABS Laboratory Tests 2 03/01/19 05:44: Nucleated Red Blood Cells % (auto) 0.0, Anion Gap 4L, Glomerular Filtration Rate > 60.0, Calcium Level 8.6L, Magnesium Level 2.1, Total Bilirubin 0.7, Aspartate Amino Transf (AST/SGOT) 17, Alanine Aminotransferase (ALT/SGPT) 20, Alkaline Phosphatase 92, Total Protein 6.1L, Albumin 2.7L, Albumin/Globulin Ratio 0.79L CBC/BMP Laboratory Tests 03/01/19 05:44 SHANE ALFORD MD Mar 01, 2019 22:08
[2019-03-01 23:00] VITALS: BP_SYST 106; BP_SYST 97; BP_SYST 98; BP_DIAS 51; BP_DIAS 54; BP_DIAS 55
[2019-03-02 06:00] VITALS: BP 138/77
[2019-03-02] MEDS: NS 1,000 ML IV SCH (06:30)
[2019-03-02 06:38] LABS: HEMATOCRIT 30.4 % (42.0-52.0); HEMOGLOBIN 9.6 g/dl (13.5-17.5); MEAN CORPUSCULAR HEMOGLOBIN 30.8 pg (27.0-33.0); MEAN CORPUSCULAR HGB CONC 31.6 g/dl (32.0-36.5); MEAN CORPUSCULAR VOLUME 97.4 fl (80.0-96.0); PLATELET COUNT, AUTOMATED 150 10^3/uL (150-450); RED BLOOD COUNT 3.12 10^6/uL (4.30-6.10); WHITE BLOOD COUNT 6.2 10^3/uL (4.0-10.0)
[2019-03-02 06:55] LABS: BLOOD UREA NITROGEN 15 MG/DL (7-18); CALCIUM LEVEL 8.2 MG/DL (8.8-10.2); CARBON DIOXIDE LEVEL 26 MEQ/L (21-32); CHLORIDE LEVEL 107 MEQ/L (98-107); CREATININE FOR GFR 0.62 MG/DL (0.70-1.30); GLOMERULAR FILTRATION RATE > 60.0 (>49); GLUCOSE, FASTING 82 MG/DL (70-100); PHOSPHORUS LEVEL 2.3 MG/DL (2.5-4.9); POTASSIUM SERUM 3.7 MEQ/L (3.5-5.1); SODIUM LEVEL 139 MEQ/L (136-145)
[2019-03-02 08:00] VITALS: BP_SYST 110; BP_SYST 113; BP_SYST 118; BP_DIAS 55; BP_DIAS 57; BP_DIAS 58
[2019-03-02] MEDS: ASPIRIN 81 MG ENTERIC TAB PO SCH (10:10)
[2019-03-02] MEDS: DOXAZOSIN MESYLATE 1 MG TAB PEG SCH (10:10)
[2019-03-02] MEDS: busPIRone 10 MG TAB PEG SCH ×2 (10:10→20:30)
[2019-03-02] MEDS: buPROPion 75 MG TAB PEG SCH ×2 (10:10→20:30)
[2019-03-02] MEDS: ACETAMINOPHEN TAB 650MG DOSE (2X325MG) PEG PRN ×2 (10:11→20:30)
[2019-03-02] MEDS: ATORVASTATIN 20 MG TAB PEG SCH (10:11)
[2019-03-02] MEDS: HEPARIN SOD (PORCINE) 5000 UNITS/ML VIAL SC SCH ×2 (10:11→20:30)
[2019-03-02] MEDS: NEUTRA-PHOS 1.5 GM PACKET PEG SCH ×2 (13:34→17:51)
[2019-03-02 14:00] VITALS: BP 102/65
[2019-03-02] MEDS: DONEPEZIL 5 MG TAB PEG SCH (20:30)
[2019-03-02 22:00] VITALS: BP 108/56
--- NOTE | 2019-03-02 22:06 | IPNPDOC ---
Date Seen The patient was seen on 03/02/19. Progress Note HISTORY OF PRESENT ILLNESS: 68-year-old male with past medical history of COPD, hyperlipidemia and CVA with subsequent dysphagia and PEG tube placement, presents from home with dizziness and headache which started earlier today. He had a stroke in November 2018, subsequent admission in December for aspiration pneumonia, followed by placement of PEG tube 2 weeks ago. He lives with his brother, reportedly he has been getting Jevity bolus feeds 4 times a day without any free water flushes. As per patient, he was never advised to take free water flushes. He has no other complaints at this time, denies any shortness of breath, chest pain, nausea, vomiting, abdominal pain, diarrhea or constipation. In the ED is found to have significant orthostatic hypotension, received 1 L normal saline bolus. 03/01/19 Patient found to have small acute/subacute CVA on MRI, likely in watershed zone due to transient hypotension/hypoperfusion. Patient remains orthostatic today, IV fluids & free water flushes have been increased. Patient currently asymptomatic, without any complaints. He denies any dizziness, headache, SOB, CP, N/V/D or abdominal pain. 03/02/19 Orthostatics negative today, patient without new complaints, comfortable at this time. Patient denies any SOB, CP, dizziness, headache, vision changes, N/V/D or abdominal pain. 10 point review of system is negative except for above PHYSICAL EXAMINATION: VITAL SIGNS: Please see below. GENERAL: No distress, frail, cachectic HEENT: Normocephalic, atraumatic, moist mucous membranes NECK: Supple CARDIOVASCULAR EXAMINATION: S1, S2, no murmurs RESPIRATORY EXAMINATION: Diminished, poor air movement, no wheezing ABDOMINAL EXAMINATION: Soft, nontender, nondistended, positive bowel sounds, PEG tube in place EXTREMITIES: Range of motion intact SKIN: No rash NEUROLOGICAL EXAMINATION: Alert and oriented 3, no focal deficits PSYCHIATRIC EXAMINATION: Calm and cooperative LABORATORY DATA: See below. IMAGING: CT head and chest x-ray negative for acute pathology MICROBIOLOGY: Please see below. ASSESSMENT: 68-year-old male with past medical history of COPD, CVA with subsequent dysphagia and PEG tube placement and hyperlipidemia presents with orthostatic hypotension secondary to lack of free water flushes via PEG tube. PLAN: 1. Orthostatic hypotension. orthostatics negative today, IV fluids discontinued. continue home Jevity bolus feeds 4 times a day, increase free water flushes of 100 mL every 4 hours. Recheck orthostatic BPs in the morning. 2. COPD Stable, continue home regimen. 3. Hyperlipidemia. Continue statin. 4. CVA. New acute/subacte CVA noted on MRI, likely due to transient hypotension/hypoperfusion w/ CVA in watershed zone. Carotid doppler negative, continue aspirin and statin DVT prophylaxis: Heparin subcutaneous GI prophylaxis: Not needed VS, I&O, 24H, Fishbone Vital Signs/I&O Vital Signs Date Time Temp Pulse Resp B/P (MAP) Pulse Ox O2 Delivery O2 Flow Rate FiO2 03/02/19 14:00 97.8 82 17 102/65 (77) 99 Room Air 03/01/19 22:00 I&O- Last 24 Hours up to 6 AM 03/02/19 06:00 Intake Total 3820 ml Output Total 950 ml Balance 2870 ml Laboratory Data 24H LABS Laboratory Tests 2 03/02/19 05:33: Nucleated Red Blood Cells % (auto) 0.0, Anion Gap 6L, Glomerular Filtration Rate > 60.0, Calcium Level 8.2L, Phosphorus Level 2.3L, Magnesium Level 2.0 CBC/BMP Laboratory Tests 03/02/19 05:33 SHANE ALFORD MD Mar 02, 2019 22:06
[2019-03-03] MEDS: ACETAMINOPHEN TAB 650MG DOSE (2X325MG) PEG PRN ×2 (05:55→21:17)
[2019-03-03 05:59] LABS: HEMATOCRIT 34.8 % (42.0-52.0); HEMOGLOBIN 11.5 g/dl (13.5-17.5); MEAN CORPUSCULAR HEMOGLOBIN 31.3 pg (27.0-33.0); MEAN CORPUSCULAR VOLUME 94.6 fl (80.0-96.0); PLATELET COUNT, AUTOMATED 175 10^3/uL (150-450); RED BLOOD COUNT 3.68 10^6/uL (4.30-6.10)
[2019-03-03 06:00] VITALS: BP_SYST 113; BP_SYST 130; BP_SYST 94; BP_SYST 99; BP_DIAS 61; BP_DIAS 62; BP_DIAS 67; BP_DIAS 70
[2019-03-03 06:29] LABS: BLOOD UREA NITROGEN 12 MG/DL (7-18); CALCIUM LEVEL 8.6 MG/DL (8.8-10.2); CARBON DIOXIDE LEVEL 31 MEQ/L (21-32); CHLORIDE LEVEL 103 MEQ/L (98-107); CREATININE FOR GFR 0.73 MG/DL (0.70-1.30); GLOMERULAR FILTRATION RATE > 60.0 (>49); GLUCOSE, FASTING 94 MG/DL (70-100); PHOSPHORUS LEVEL 2.8 MG/DL (2.5-4.9); POTASSIUM SERUM 3.9 MEQ/L (3.5-5.1); SODIUM LEVEL 138 MEQ/L (136-145)
[2019-03-03] MEDS: ASPIRIN 81 MG ENTERIC TAB PO SCH (09:04)
[2019-03-03] MEDS: busPIRone 10 MG TAB PEG SCH ×2 (09:04→21:17)
[2019-03-03] MEDS: ATORVASTATIN 20 MG TAB PEG SCH (09:05)
[2019-03-03] MEDS: buPROPion 75 MG TAB PEG SCH ×2 (09:05→21:17)
[2019-03-03 09:07] VITALS: BP 120/69
[2019-03-03] MEDS: DOXAZOSIN MESYLATE 1 MG TAB PEG SCH (09:07)
[2019-03-03] MEDS: HEPARIN SOD (PORCINE) 5000 UNITS/ML VIAL SC SCH ×2 (09:07→21:18)
[2019-03-03] MEDS: MIDODRINE 2.5 MG TAB PO SCH ×2 (13:27→17:50)
[2019-03-03 13:29] VITALS: BP 116/59
[2019-03-03 14:00] VITALS: BP 116/59
--- NOTE | 2019-03-03 20:22 | IPNPDOC ---
Date Seen The patient was seen on 03/03/19. Progress Note HISTORY OF PRESENT ILLNESS: 68-year-old male with past medical history of COPD, hyperlipidemia and CVA with subsequent dysphagia and PEG tube placement, presents from home with dizziness and headache which started earlier today. He had a stroke in November 2018, subsequent admission in December for aspiration pneumonia, followed by placement of PEG tube 2 weeks ago. He lives with his brother, reportedly he has been getting Jevity bolus feeds 4 times a day without any free water flushes. As per patient, he was never advised to take free water flushes. He has no other complaints at this time, denies any shortness of breath, chest pain, nausea, vomiting, abdominal pain, diarrhea or constipation. In the ED is found to have significant orthostatic hypotension, received 1 L normal saline bolus. 03/01/19 Patient found to have small acute/subacute CVA on MRI, likely in watershed zone due to transient hypotension/hypoperfusion. Patient remains orthostatic today, IV fluids & free water flushes have been increased. Patient currently asymptomatic, without any complaints. He denies any dizziness, headache, SOB, CP, N/V/D or abdominal pain. 03/02/19 Orthostatics negative today, patient without new complaints, comfortable at this time. Patient denies any SOB, CP, dizziness, headache, vision changes, N/V/D or abdominal pain. 03/03/19 Patient resting comfortably, denies any dizziness or headache, remains orthostatic positive. He denies any shortness of breath, chest pain, nausea, vomiting, abdominal pain or diarrhea. 10 point review of system is negative except for above PHYSICAL EXAMINATION: VITAL SIGNS: Please see below. GENERAL: No distress, frail, cachectic HEENT: Normocephalic, atraumatic, moist mucous membranes NECK: Supple CARDIOVASCULAR EXAMINATION: S1, S2, no murmurs RESPIRATORY EXAMINATION: Diminished, poor air movement, no wheezing ABDOMINAL EXAMINATION: Soft, nontender, nondistended, positive bowel sounds, PEG tube in place EXTREMITIES: Range of motion intact SKIN: No rash NEUROLOGICAL EXAMINATION: Alert and oriented 3, no focal deficits PSYCHIATRIC EXAMINATION: Calm and cooperative LABORATORY DATA: See below. IMAGING: CT head and chest x-ray negative for acute pathology MICROBIOLOGY: Please see below. ASSESSMENT: 68-year-old male with past medical history of COPD, CVA with subsequent dysphagia and PEG tube placement and hyperlipidemia presents with ort hostatic hypotension secondary to lack of free water flushes via PEG tube. PLAN: 1. Orthostatic hypotension. orthostatics positive today, midodrine 2.5 mg 3 times a day started. continue home Jevity bolus feeds 4 times a day, continue free water flushes of 100 mL every 4 hours. Recheck orthostatic BPs in the morning. 2. COPD Stable, continue home regimen. 3. Hyperlipidemia. Continue statin. 4. CVA. New acute/subacte CVA noted on MRI, likely due to transient hypotension/hypoperfusion w/ CVA in watershed zone. Carotid doppler negative, continue aspirin and statin DVT prophylaxis: Heparin subcutaneous GI prophylaxis: Not needed VS, I&O, 24H, Fishbone Vital Signs/I&O Vital Signs Date Time Temp Pulse Resp B/P (MAP) Pulse Ox O2 Delivery O2 Flow Rate FiO2 03/03/19 14:00 97.7 72 20 116/59 (78) 99 Room Air 03/01/19 22:00 I&O- Last 24 Hours up to 6 AM 03/03/19 06:00 Intake Total 1775 ml Output Total 0 ml Balance 1775 ml Laboratory Data 24H LABS Laboratory Tests 2 03/03/19 05:31: Nucleated Red Blood Cells % (auto) 0.0, Anion Gap 4L, Glomerular Filtration Rate > 60.0, Calcium Level 8.6L, Phosphorus Level 2.8#, Magnesium Level 2.0 CBC/BMP Laboratory Tests 03/03/19 05:31 SHANE ALFORD MD Mar 03, 2019 20:22
[2019-03-03] MEDS: DONEPEZIL 5 MG TAB PEG SCH (21:17)
[2019-03-03 22:00] VITALS: BP 117/60
[2019-03-04] MEDS: ACETAMINOPHEN TAB 650MG DOSE (2X325MG) PEG PRN (04:10)
[2019-03-04 06:00] VITALS: BP_SYST 120; BP_SYST 72; BP_SYST 93; BP_SYST 97; BP_DIAS 46; BP_DIAS 53; BP_DIAS 61
[2019-03-04 08:14] LABS: HEMATOCRIT 33.2 % (42.0-52.0); HEMOGLOBIN 11.2 g/dl (13.5-17.5); MEAN CORPUSCULAR HEMOGLOBIN 31.9 pg (27.0-33.0); MEAN CORPUSCULAR HGB CONC 33.7 g/dl (32.0-36.5); MEAN CORPUSCULAR VOLUME 94.6 fl (80.0-96.0); PLATELET COUNT, AUTOMATED 182 10^3/uL (150-450); RED BLOOD COUNT 3.51 10^6/uL (4.30-6.10); WHITE BLOOD COUNT 7.1 10^3/uL (4.0-10.0)
[2019-03-04 08:43] LABS: BLOOD UREA NITROGEN 15 MG/DL (7-18); CALCIUM LEVEL 8.9 MG/DL (8.8-10.2); CARBON DIOXIDE LEVEL 28 MEQ/L (21-32); CHLORIDE LEVEL 102 MEQ/L (98-107); CREATININE FOR GFR 0.77 MG/DL (0.70-1.30); GLOMERULAR FILTRATION RATE > 60.0 (>49); GLUCOSE, FASTING 86 MG/DL (70-100); POTASSIUM SERUM 4.1 MEQ/L (3.5-5.1); SODIUM LEVEL 138 MEQ/L (136-145)
[2019-03-04] MEDS ORDERED: FLUDROCORTISONE ACETATE 0.1 MG TAB PO SCH (09:00)
[2019-03-04] MEDS ORDERED: MIDODRINE 2.5 MG TAB PO SCH (09:00)
[2019-03-04 09:37] VITALS: BP 108/60
[2019-03-04] MEDS: buPROPion 75 MG TAB PEG SCH (09:38)
[2019-03-04] MEDS: ASPIRIN 81 MG ENTERIC TAB PO SCH (09:38)
[2019-03-04] MEDS: busPIRone 10 MG TAB PEG SCH (09:38)
[2019-03-04] MEDS: HEPARIN SOD (PORCINE) 5000 UNITS/ML VIAL SC SCH (09:38)
[2019-03-04] MEDS: MIDODRINE 5 MG TAB PO SCH ×2 (09:38→12:47)
[2019-03-04] MEDS: ATORVASTATIN 20 MG TAB PEG SCH (09:38)
[2019-03-04] MEDS ORDERED: MIDO5TA PO (11:49)
[2019-03-04] MEDS ORDERED: ATOR1TAB21 PEG (11:49)
[2019-03-04] MEDS ORDERED: FLUD0.1T PO (11:49)
[2019-03-04 12:00] VITALS: BP_SYST 102; BP_SYST 117; BP_SYST 94; BP_DIAS 57; BP_DIAS 59; BP_DIAS 70
[2019-03-04 12:47] VITALS: BP 108/64
[2019-03-04 14:00] VITALS: BP 115/64
--- NOTE | 2019-03-04 15:41 | DS.PDOC ---
Discharge Summary General Date of Admission Feb 28, 2019 at 12:04 Date of Discharge 03/04/19 Attending Physician: SHANE ALFORD MD Discharge Summary PROCEDURES PERFORMED DURING STAY: None. ADMITTING DIAGNOSES: 1. Orthostatic hypotension secondary to dehydration, acute/subacute CVA. DISCHARGE DIAGNOSES: 1. Orthostatic hypotension secondary to dehydration, acute/subacute CVA. COMPLICATIONS/CHIEF COMPLAINT: Copd,Dehydration,Dizziness,Hld. HISTORY OF PRESENT ILLNESS: 68-year-old male with past medical history of COPD and CVA was admitted for orthostatic hypotension secondary to dehydration because he had not been using any free water flushes through his PEG tube for the past 2 weeks. Patient and family were not aware that he was supposed to get free water flushes along with his bolus meals. He was treated with IV hydration along with free water flushes which were titrated up to patient's needs, currently 100 mL's every 4 hours. The patient remained orthostatic despite adequate hydration for over 48 hours, patient was then started on midodrine and still remained orthostatic 24 hours later, patient was then started on fludrocortisone and midodrine dose was increased to 5 mg 3 times a day. Patient's orthostatics are now negative, feeds have been arranged by social mckayla and patient is clinically, he would have be stable for discharge and outpatient follow-up. Patient was also found to have an acute/subacute stroke, possibly due to prolonged hypotension from dehydration, remains on aspirin and statin, no focal deficits from new or stroke. Patient is advised to follow up with neurologist and PCP after discharge. HOSPITAL COURSE: As above. DISCHARGE MEDICATIONS: Please see below. ALLERGIES: Please see below. PHYSICAL EXAMINATION: VITAL SIGNS: Please see below. GENERAL: No distress, frail, cachectic HEENT: Normocephalic, atraumatic, moist mucous membranes NECK: Supple CARDIOVASCULAR EXAMINATION: S1, S2, no murmurs RESPIRATORY EXAMINATION: Diminished, poor air movement, no wheezing ABDOMINAL EXAMINATION: Soft, nontender, nondistended, positive bowel sounds, PEG tube in place EXTREMITIES: Range of motion intact SKIN: No rash NEUROLOGICAL EXAMINATION: Alert and oriented 3, no focal deficits PSYCHIATRIC EXAMINATION: Calm and cooperative LABORATORY DATA: Please see below. IMAGING: MRI with acute/subacute CVA PROGNOSIS: Guarded ACTIVITY: As tolerated. DIET: Tube feeds with free water flushes DISCHARGE PLAN: Follow with neurologist and PCP in 1-2 weeks DISPOSITION: 01 Home, Self-Care. DISCHARGE INSTRUCTIONS: 1. As above. DISCHARGE CONDITION: Stable. TIME SPENT ON DISCHARGE: Greater than 35 minutes. Vital Signs/I&Os Vital Signs Date Time Temp Pulse Resp B/P (MAP) Pulse Ox O2 Delivery O2 Flow Rate FiO2 03/04/19 14:00 98.2 80 18 115/64 (81) 97 Room Air 03/01/19 22:00 I&O- Last 24 Hours up to 6 AM 03/04/19 06:00 Intake Total 1280 ml Balance 1280 ml Laboratory Data Labs 24H Laboratory Tests 2 03/04/19 07:20: Nucleated Red Blood Cells % (auto) 0.0, Anion Gap 8, Glomerular Filtration Rate > 60.0, Calcium Level 8.9 CBC/BMP Laboratory Tests 03/04/19 07:20 Discharge Medications Scheduled Aspirin (Aspirin) 81 Mg Tab.chew, 81 MG PEG DAILY, (Reported) Atorvastatin Calcium (Atorvastatin Calcium) 20 Mg Tablet, 60 MG PEG DAILY Bupropion HCl (Bupropion HCl) 75 Mg Tablet, 75 MG PEG BID, (Reported) Buspirone HCl (Buspirone HCl) 10 Mg Tab, 10 MG PEG BID, (Reported) Donepezil HCl (Donepezil HCl) 10 Mg Tablet, 10 MG PEG QHS, (Reported) Fludrocortisone Acetate (Fludrocortisone Acetate) 0.1 Mg Tablet, 0.1 MG PO DAILY Midodrine HCl (Midodrine HCl) 5 Mg Tablet, 5 MG PO TID@0800,1200,1600 Scheduled PRN Albuterol Sulf (Albuterol Sulfate) 2.5 Mg/3 Ml Vial.neb, 2.5 MG INH Q4H PRN for COUGH, (Reported) Meclizine HCl (Meclizine HCl) 25 Mg Tablet, 25 MG PO Q8H PRN for DIZZINESS, (Reported) Allergies Coded Allergies: No Known Allergies (Unverified , 09/29/18) SHANE ALFORD MD Mar 04, 2019 15:41
== END 2019-03-04 14:26 | disposition home or self-care (01) | DRG 640 ==
LOC: M ED 11:21 → M ED INP 11:22 → OBSVTOIN 12:04 → ENRESERVDT 14:50 → ENRESERVTM 14:50 → M MSPAV 15:50
PROVIDERS: ADMIT Internal Medicine; ATTEND Internal Medicine
DX: E86.0 Dehydration (principal); I63.59 Cerebral infarction due to unspecified occlusion or stenosis of other cerebral artery; I95.1 Orthostatic hypotension; J44.9 Chronic obstructive pulmonary disease, unspecified; Z93.1 Gastrostomy status; Z79.82 Long term (current) use of aspirin; Z79.899 Other long term (current) drug therapy; E78.5 Hyperlipidemia, unspecified; R13.10 Dysphagia, unspecified; Z87.891 Personal history of nicotine dependence

== ENCOUNTER → 2019-03-07 | Outpatient (CLI) | payer MEDICARE, MEDICAID ==
[~2019-03-07] MED LIST changes: +ASPI81CH33 PEG; +ATOR1TAB21 PEG; +DOXA1TAB41 PEG; +FLUD0.1T PO; -MECL-68 PO; +MECL1TAB31 PO; +MIDO5TA PO
--- NOTE | 2019-03-08 03:31 | REP ---
Clinical: Urinary retention. Technique: Real time garcia scale and color evaluation using curved array transducer. Findings: Bladder demonstrates mild wall thickening to approximately 7 mm with scattered pseudo-diverticulum consistent with chronic changes. A 4.0 x 3.6 x 1.5 cm cystic area along the posterior aspect of the bladder may represent small diverticulum. Small amount of layering debris noted without obvious mass lesion. Bilateral ureteral jets were not identified during examination. Prevoid bladder measures 12.4 x 9.2 x 10.3 cm (770 ml). Postvoid bladder measures 10.2 x 8.9 x 9.8 cm (580 ml). Postvoid residual equals 76%. Impression: 1. Chronic-appearing wall thickening with possible posterior wall diverticulum and scattered pseudo-diverticulum. 2. Abnormal elevated postvoid residual volume. Electronically Signed by Rene Kerr MD 03/08/2019 03:23 A
== END ==
LOC: M LRY 08:28
PROVIDERS: ATTEND Family Medicine
DX: N32.89 Other specified disorders of bladder (principal); R33.9 Retention of urine, unspecified

== ENCOUNTER 2019-03-28 12:30 | Outpatient (RCR) | payer MEDICARE, MEDICAID | END 2019-03-29 | LOC: M ST 12:30 | PROVIDERS: ATTEND Family Medicine | DX: Z51.89 Encounter for other specified aftercare (principal); I69.391 Dysphagia following cerebral infarction ==

== ENCOUNTER → 2019-04-03 | Outpatient (REF) | payer MEDICARE, MEDICAID ==
[2019-04-03 18:32] LABS: BASO % 0.3 % (0.0-1.0); EOS # 0.1 10^3/uL (0.0-0.5); EOS % 0.4 % (0.0-3.0); HEMATOCRIT 38.4 % (42.0-52.0); HEMOGLOBIN 12.3 g/dl (13.5-17.5); LYMPH # 1.2 10^3/uL (1.5-5.0); LYMPH % 9.4 % (24.0-44.0); MONO % 7.3 % (0.0-5.0); NEUTROPHILS # 10.8 10^3/uL (1.5-8.5); NEUTROPHILS % 82.2 % (36.0-66.0); PLATELET COUNT, AUTOMATED 306 10^3/uL (150-450); RED BLOOD COUNT 3.84 10^6/uL (4.30-6.10); WHITE BLOOD COUNT 13.1 10^3/uL (4.0-10.0)
[2019-04-03 18:51] LABS: ALBUMIN 3.7 GM/DL (3.2-5.2); ALT/SGPT 38 U/L (12-78); BILIRUBIN,TOTAL 0.8 MG/DL (0.2-1.0); BLOOD UREA NITROGEN 23 MG/DL (7-18); CALCIUM LEVEL 9.3 MG/DL (8.8-10.2); CARBON DIOXIDE LEVEL 34 MEQ/L (21-32); CHLORIDE LEVEL 97 MEQ/L (98-107); CREATININE FOR GFR 0.88 MG/DL (0.70-1.30); FREE T4 1.18 NG/DL (0.76-1.46); GLOMERULAR FILTRATION RATE > 60.0 (>49); GLUCOSE, FASTING 126 MG/DL (70-100); MAGNESIUM LEVEL 2.2 MG/DL (1.8-2.4); POTASSIUM SERUM 4.3 MEQ/L (3.5-5.1); PREALBUMIN 19.6 MG/DL (20.0-40.0); SODIUM LEVEL 136 MEQ/L (136-145); THYROID STIMULATING HORMONE 0.483 uIU/ML (0.358-3.740); TOTAL PROTEIN 7.3 GM/DL (6.4-8.2)
== END ==
LOC: M SFHCLERA 12:07
PROVIDERS: ATTEND Family Medicine
DX: R64 Cachexia (principal); Z79.899 Other long term (current) drug therapy

== ENCOUNTER 2019-05-06 22:52 | Emergency (ER) | payer MEDICARE, MEDICAID ==
[~2019-05-06] VITALS: Ht 162.6 cm; Wt 50.0 kg
[~2019-05-06 22:52] MED LIST changes: -FLUD0.1T PEG; -GRAN1TA PO; -HYDR1SOL PEG; -JEVILIQ7 PEG
[2019-05-06] MEDS ORDERED: JEVILIQ7 PEG (23:18)
[2019-05-06 23:33] LABS: BASO % 0.3 % (0.0-1.0); EOS # 0.1 10^3/uL (0.0-0.5); EOS % 0.4 % (0.0-3.0); HEMATOCRIT 30.5 % (42.0-52.0); HEMOGLOBIN 9.9 g/dl (13.5-17.5); LYMPH # 1.1 10^3/uL (1.5-5.0); LYMPH % 7.3 % (24.0-44.0); MEAN CORPUSCULAR HEMOGLOBIN 31.5 pg (27.0-33.0); MEAN CORPUSCULAR HGB CONC 32.5 g/dl (32.0-36.5); MEAN CORPUSCULAR VOLUME 97.1 fl (80.0-96.0); MONO % 7.1 % (0.0-5.0); NEUTROPHILS # 12.1 10^3/uL (1.5-8.5); NEUTROPHILS % 84.2 % (36.0-66.0); PLATELET COUNT, AUTOMATED 387 10^3/uL (150-450); RED BLOOD COUNT 3.14 10^6/uL (4.30-6.10); WHITE BLOOD COUNT 14.3 10^3/uL (4.0-10.0)
[2019-05-06 23:43] LABS: INR 1.12; PROTHROMBIN TIME 14.1 SECONDS (11.8-14.0)
[2019-05-07 00:07] LABS: BLOOD UREA NITROGEN 24 MG/DL (7-18); CALCIUM LEVEL 8.9 MG/DL (8.8-10.2); CARBON DIOXIDE LEVEL 33 MEQ/L (21-32); CHLORIDE LEVEL 99 MEQ/L (98-107); CREATININE FOR GFR 0.56 MG/DL (0.70-1.30); GLOMERULAR FILTRATION RATE > 60.0 (>49); GLUCOSE, FASTING 95 MG/DL (70-100); POTASSIUM SERUM 4.3 MEQ/L (3.5-5.1); SODIUM LEVEL 137 MEQ/L (136-145); THYROID STIMULATING HORMONE 0.882 uIU/ML (0.358-3.740)
[2019-05-07] MEDS ORDERED: ISOVUE-370 76% 100ML VIAL (Q9967) As Ordered ONE (00:10)
--- NOTE | 2019-05-07 00:54 | REPVR ---
PROCEDURE INFORMATION: Exam: CT Head Without Contrast Exam date and time: 05/07/2019 12:02 AM Age: 68 years old Clinical indication: Other: Syncope; Additional info: Eval lue asthenia TECHNIQUE: Imaging protocol: Computed tomography of the head without contrast. Radiation optimization: All CT scans at this facility use at least one of these dose optimization techniques: automated exposure control; mA and/or kV adjustment per patient size (includes targeted exams where dose is matched to clinical indication); or iterative reconstruction. COMPARISON: CT Head without contrast 2019-02-28 13:01 FINDINGS: Brain: Diffuse mild cerebral age related volume loss. Mild patchy low attenuation in the white matter compatible with mild chronic small vessel ischemic disease. No midline shift, mass, fluid collection, or evidence of hemorrhage. Ventricles: Ventricular enlargement proportional to volume loss. Bones/joints: Unremarkable. No acute fracture. Sinuses: Visualized sinuses are unremarkable. No fluid levels. Mastoid air cells: Visualized mastoid air cells are well aerated. Soft tissues: Unremarkable. IMPRESSION: Mild involutional changes, no acute intracranial abnormality. Electronically signed by: Juan Guo On 05/07/2019 00:54:15 AM
--- NOTE | 2019-05-07 01:13 | REPVR ---
PROCEDURE INFORMATION: Exam: CT Angiography Head With Contrast Exam date and time: 05/07/2019 12:02 AM Age: 68 years old Clinical indication: Other: Syncope; Additional info: Eval lue asthenia TECHNIQUE: Imaging protocol: Computed tomography angiography of the head with intravenous contrast. 3D rendering: MIP and/or 3D reconstructed images were created by the technologist. Radiation optimization: All CT scans at this facility use at least one of these dose optimization techniques: automated exposure control; mA and/or kV adjustment per patient size (includes targeted exams where dose is matched to clinical indication); or iterative reconstruction. Contrast material: ISO; Contrast volume: 75 ml; Contrast route: AC; COMPARISON: CT Head without contrast 2019-02-28 13:01 FINDINGS: Right internal carotid artery: Unremarkable. Intracranial segment is patent with no significant stenosis. No aneurysm. Right anterior cerebral artery: Unremarkable. No occlusion or significant stenosis. No aneurysm. Right middle cerebral artery: Unremarkable. No occlusion or significant stenosis. No aneurysm. Right posterior cerebral artery: Unremarkable. No occlusion or significant stenosis. No aneurysm. Right vertebral artery: Unremarkable. No occlusion or significant stenosis. No aneurysm. Left internal carotid artery: Moderate to severe left paraclinoid ICA atherosclerotic stenosis. Left anterior cerebral artery: Unremarkable. No occlusion or significant stenosis. No aneurysm. Left middle cerebral artery: Unremarkable. No occlusion or significant stenosis. No aneurysm. Left posterior cerebral artery: Unremarkable. No occlusion or significant stenosis. No aneurysm. Left vertebral artery: Unremarkable. No occlusion or significant stenosis. No aneurysm. Basilar artery: Unremarkable. No occlusion or significant stenosis. No aneurysm. Dural sinuses/cerebral veins: The visualized deep and superficial dural venous sinuses and cortical veins are patent. HEAD: Nasopharynx: Left nasopharyngeal region suspected mass obliterating and severely extrinsically compressing the left ICA. IMPRESSION: 1. Moderate to severe left paraclinoid ICA atherosclerotic stenosis. 2. Left nasopharyngeal region suspected mass obliterating and severely extrinsically compressing the left ICA. Electronically signed by: Juan Guo On 05/07/2019 01:12:53 AM
--- NOTE | 2019-05-07 01:18 | REPVR ---
PROCEDURE INFORMATION: Exam: CT Maxillofacial With Contrast Exam date and time: 05/07/2019 12:02 AM Age: 68 years old Clinical indication: Mass, lump, or swelling; Other: Submandibular; Additional info: Eval L submandibular mass TECHNIQUE: Imaging protocol: Computed tomography images of the face with intravenous contrast. Radiation optimization: All CT scans at this facility use at least one of these dose optimization techniques: automated exposure control; mA and/or kV adjustment per patient size (includes targeted exams where dose is matched to clinical indication); or iterative reconstruction. Contrast material: ISO; Contrast volume: 75 ml; Contrast route: AC; COMPARISON: CT Maxilofacial w/out contrast 2019-02-28 14:47 FINDINGS: Orbits: Orbits are normal. Globes are unremarkable. Sinuses: Normal. No air-fluid levels. Bones/joints: Bony erosion near the foramen of lacerum, and also along the posterior left mandibular angle with almost certainly involvement of the left mandibular nerve entering the mandible. Mass also extends into the left material handler space. Approximate dimensions 3.7 x 5 x 6.5 cm. Nasopharynx: Large mass extending from the left nasopharynx downward into the larynx with thickening of the left vocal folds and loss of the left paraglottic fat. Vasculature: Bilateral moderate carotid atherosclerotic stenosis. Submandibular/Parotid glands: Also into the left parapharyngeal space, and through the styloid mastoid interspace and into the left parotid gland. Soft tissues: Unremarkable. IMPRESSION: Large trans spatial mass extending from the nasopharynx to the larynx, and the pharynx externally into the parotid space and mandible, skull base, left parapharyngeal space, and left paraglottic fat. Most likely squamous cell carcinoma, or potentially deep parotid aggressive malignancy, recommend tissue biopsy. Electronically signed by: Juan Guo On 05/07/2019 01:17:52 AM
--- NOTE | 2019-05-07 04:46 | REPVR ---
PROCEDURE INFORMATION: Exam: MR Head Without Contrast Exam date and time: 05/07/2019 4:41 AM Age: 68 years old Clinical indication: Speech disturbance and other: CVA sympt; Slurred speech TECHNIQUE: Imaging protocol: MR of the head without contrast. COMPARISON: MRI-Brain without Contrast 2019-02-28 19:11 FINDINGS: Brain: No diffusion restriction to suggest acute ischemia or infarction. Mild scattered FLAIR hyperintense foci within the supratentorial deep and subcortical white matter suggesting mild chronic small vessel ischemic disease. No gradient susceptibility blooming within the brain parenchyma to suggest hemorrhage. No midline shift, mass, or fluid collection is present. Diffuse cerebral age related volume loss. Brainstem: The brainstem, posterior fossa and cervical medullary junction are preserved. Ventricles: Ventricular enlargement proportional to volume loss. Bones/joints: Unremarkable. Soft tissues: Unremarkable. Sinuses: Normal as visualized. No acute sinusitis. Mastoid air cells: Normal as visualized. No mastoid effusion. Orbits: Unremarkable. IMPRESSION: Mild age-related changes. No acute abnormality. Electronically signed by: Juan Guo On 05/07/2019 04:45:40 AM
--- NOTE | 2019-05-07 04:50 | REPVR ---
PROCEDURE INFORMATION: Exam: MR Neck Without Contrast Exam date and time: 05/07/2019 4:41 AM Age: 68 years old Clinical indication: Abnormal findings; Abnormal xray or scan of face; Additional info: L mass ica compression TECHNIQUE: Imaging protocol: MR images of the neck without intravenous contrast. COMPARISON: CT Maxillofacial with contrast 2019-05-07 00:20 FINDINGS: Limitations: Study is limited by the absence of contrast. Orbits: Mass appears to infiltrate along the left mandibular nerve into the left mandible with bony erosion and irregularity. Nasopharynx: Unremarkable. Oropharynx: Unremarkable. Hypopharynx: Effacement of the left piriformis sinus. Larynx: Unremarkable. Submandibular/Parotid glands: Left posterior nasopharynx mass, involving the longus colli muscle, and extending downward into the oropharynx, left parapharyngeal fat, left glass rolling machine operator and submandibular spaces, and left carotid and parotid spaces. Retropharyngeal space: Mass extends into the retropharynx along the left side. Vasculature: Abnormal signal involving the left ICA compatible with occlusion related to extrinsic mass. Lymph nodes: No lymphadenopathy. Soft tissues: Extends downward with asymmetric thickening of the left aryepiglottic fold, and some loss of the left paraglottic fat. Bones/joints: Some the mass appears to extend anteriorly into the left aspect of the floor of the mouth. IMPRESSION: No change from the recent CT, large mass. Study performed without contrast. Electronically signed by: Juan Guo On 05/07/2019 04:49:55 AM
[2019-05-07 05:30] VITALS: BP 131/59
--- NOTE | 2019-05-08 20:40 | ECGEPIP ---
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
[2019-05-23] MEDS ORDERED: HYDR1SOL PEG (13:48)
[2019-05-23] MEDS ORDERED: GRAN1TA PO (13:52)
== END 2019-05-07 05:38 | disposition home or self-care (01) ==
LOC: M ED 22:52
DX: I65.29 Occlusion and stenosis of unspecified carotid artery (principal); J38.7 Other diseases of larynx; R29.898 Other symptoms and signs involving the musculoskeletal system; Z93.1 Gastrostomy status; E78.5 Hyperlipidemia, unspecified; Z86.73 Personal history of transient ischemic attack (TIA), and cerebral infarction without residual deficits; Z79.899 Other long term (current) drug therapy; Z79.82 Long term (current) use of aspirin; Z79.01 Long term (current) use of anticoagulants; Z87.891 Personal history of nicotine dependence
CPT/HCPCS: 36415; 70450; 70487; 70496; 70540; 70551; 80053; 84443; 85025; 85610; 93005; 93041; 94760; 99285; Q9967

== ENCOUNTER → 2019-05-06 | Outpatient (REF) | payer MEDICARE, MEDICAID ==
[~2019-05-06] MED LIST changes: +CHLO0.124 MT; +FLUD0.1T PEG; +GRAN1TA PO; +HYDR1SOL PEG; +JEVILIQ7 PEG; +MECL1TAB31 PEG; -MECL1TAB31 PO; +PLAV1TAB2 PEG
[2019-05-06 17:26] LABS: ALT/SGPT 38 U/L (12-78); BILIRUBIN,TOTAL 0.2 MG/DL (0.2-1.0); BLOOD UREA NITROGEN 22 MG/DL (7-18); CALCIUM LEVEL 8.6 MG/DL (8.8-10.2); CARBON DIOXIDE LEVEL 32 MEQ/L (21-32); CHLORIDE LEVEL 100 MEQ/L (98-107); CREATININE FOR GFR 0.55 MG/DL (0.70-1.30); GLOMERULAR FILTRATION RATE > 60.0 (>49); GLUCOSE, FASTING 79 MG/DL (70-100); POTASSIUM SERUM 4.3 MEQ/L (3.5-5.1); SODIUM LEVEL 137 MEQ/L (136-145)
== END ==
LOC: M SFHCLERA 11:47
PROVIDERS: ATTEND Family Medicine
DX: Z93.1 Gastrostomy status (principal)

== ENCOUNTER 2019-05-10 14:22 | Emergency (ER) | payer MEDICARE, MEDICAID ==
[~2019-05-10] VITALS: Ht 170.2 cm; Wt 48.6 kg
[~2019-05-10 14:22] MED LIST changes: -FLUD0.1T PEG; -HYDR1SOL PEG
[2019-05-10] MEDS ORDERED: PANTOPRAZOLE 40MG INJ (PROTONIX) (C9113) IV ONE (15:45)
[2019-05-10] MEDS ORDERED: NS 1,000 ML IV ONE ×2 (15:45→20:00)
[2019-05-10] MEDS ORDERED: ACETAMINOPH W/CODEINE #3 TAB UD GT ONE (16:00)
[2019-05-10] MEDS ORDERED: FLUD0.1T PEG (16:12)
[2019-05-10] MEDS ORDERED: MECL1TAB31 PEG (16:12)
[2019-05-10] MEDS ORDERED: HYDR1SOL PEG (16:12)
[2019-05-10 16:31] LABS: INR 1.01; PROTHROMBIN TIME 13.1 SECONDS (11.8-14.0)
[2019-05-10 16:50] LABS: ALBUMIN 3.1 GM/DL (3.2-5.2); ALT/SGPT 36 U/L (12-78); BILIRUBIN,DIRECT < 0.1 MG/DL (0.0-0.2); BILIRUBIN,TOTAL 0.3 MG/DL (0.2-1.0); BLOOD UREA NITROGEN 24 MG/DL (7-18); CALCIUM LEVEL 8.8 MG/DL (8.8-10.2); CARBON DIOXIDE LEVEL 35 MEQ/L (21-32); CHLORIDE LEVEL 99 MEQ/L (98-107); CREATININE FOR GFR 0.56 MG/DL (0.70-1.30); GLOMERULAR FILTRATION RATE > 60.0 (>49); GLUCOSE, FASTING 82 MG/DL (70-100); POTASSIUM SERUM 4.3 MEQ/L (3.5-5.1); SODIUM LEVEL 137 MEQ/L (136-145); TOTAL PROTEIN 7.1 GM/DL (6.4-8.2)
[2019-05-10] MEDS ORDERED: ISOVUE-370 76% 100ML VIAL (Q9967) As Ordered ONE (16:56)
[2019-05-10 17:20] LABS: BASO % 0.4 % (0.0-1.0); EOS # 0.1 10^3/uL (0.0-0.5); EOS % 0.7 % (0.0-3.0); HEMATOCRIT 30.8 % (42.0-52.0); HEMOGLOBIN 9.9 g/dl (13.5-17.5); LYMPH % 9.8 % (24.0-44.0); MEAN CORPUSCULAR HEMOGLOBIN 31.8 pg (27.0-33.0); MEAN CORPUSCULAR HGB CONC 32.1 g/dl (32.0-36.5); MONO # 0.9 10^3/uL (0.0-0.8); MONO % 8.2 % (0.0-5.0); NEUTROPHILS # 8.4 10^3/uL (1.5-8.5); NEUTROPHILS % 80.4 % (36.0-66.0); PLATELET COUNT, AUTOMATED 330 10^3/uL (150-450); RED BLOOD COUNT 3.11 10^6/uL (4.30-6.10); WHITE BLOOD COUNT 10.4 10^3/uL (4.0-10.0)
--- NOTE | 2019-05-10 17:35 | REPVR ---
PROCEDURE INFORMATION: Exam: CT Neck With Contrast Exam date and time: 05/10/2019 3:32 PM Age: 68 years old Clinical indication: Dysphagia / difficulty swallowing and other: Hematemesis; Additional info: Dysphagia, hematemesis TECHNIQUE: Imaging protocol: Computed tomography images of the neck with intravenous contrast. Radiation optimization: All CT scans at this facility use at least one of these dose optimization techniques: automated exposure control; mA and/or kV adjustment per patient size (includes targeted exams where dose is matched to clinical indication); or iterative reconstruction. Contrast material: Isovue 370; Contrast volume: 75 ml; Contrast route: IV; COMPARISON: CT Neck with contrast 09/29/2018 7:48 PM FINDINGS: Orbits: Bilateral prior cataract surgery. Sinuses: Intravascular arachnoid granulation left transverse sinus, normal variant. Nasopharynx: Posterior invasion/compression of the left fossa of Rosenmuller by the left jaw/neck mass prevertebral involvement. Oropharynx: Extension of the left neck/jaw mass into the left posterior base of tongue and palatine tonsil. Hypopharynx: Invasion of the left hypopharynx by the left jaw/neck mass. Thickening of the left aryepiglottic fold. Larynx: Abnormal soft tissue density posterior left paralaryngeal space. Mild thickening of the left epiglottis. Retropharyngeal space: Loss of soft tissue planes on the left cranial to the upper C3 level. Submandibular/Parotid glands: Deep lobe left parotid gland invasion by the left jaw/neck mass. Thyroid: Normal. No enlarged or calcified nodules. Lymph nodes: No significant lymphadenopathy. Trachea: Visualized trachea is unremarkable. Lungs: Mild apical pleuroparenchymal scarring. Mild paraseptal emphysema of the right pulmonary apex. Vasculature: Near occlusion superior left internal carotid artery. Greater than 70% stenosis proximal right internal carotid artery. 50-69% stenosis clinoid left ICA. Reflux of high-density contrast from left upper extremity injection into the left internal jugular vein. Intraluminal gas is also likely iatrogenic. Bones/joints: Increased partial destruction of the left hyoid bone by the left jaw/neck mass, defect size approximately 4.0 x 1.0 x 1.7 cm. Soft tissues: Destructive mass left angle of mandible with soft tissue extension into the parapharyngeal space, secondary social studies teacher space, and prevertebral space, approximate dimensions 4.6 x 3.6 x 5.9 cm. Atrophy left sternocleidomastoid muscle. IMPRESSION: 1. Interval progression of left neck trans-spatial mass, with increased destruction of the left mandible, hyoid bone, and increased vascular involvement as described. 2. Near occlusion superior left internal carotid artery. 3. Greater than 70% stenosis proximal right internal carotid artery. 4. 50-69% stenosis clinoid left ICA. Electronically signed by: Chirag Zavaleta On 05/10/2019 17:34:40 PM
[2019-05-10] MEDS ORDERED: cefTRIAXone SOD 1 GM in D5W MINI-BAG PLUS 50 ML IV ONE (18:00)
[2019-05-10] MEDS ORDERED: MORPHINE 2 MG/ML 1ML VIAL (J2270) IV ONE (18:15)
[2019-05-10] MEDS ORDERED: ONDANSETRON 4MG/2ML VIAL (J2405) IV ONE (18:15)
[2019-05-10 20:15] VITALS: BP 94/52
== END 2019-05-10 21:47 | disposition short-term general hospital (02) ==
LOC: M ED 14:22
DX: J18.1 Lobar pneumonia, unspecified organism (principal); R22.1 Localized swelling, mass and lump, neck; I65.29 Occlusion and stenosis of unspecified carotid artery; J44.9 Chronic obstructive pulmonary disease, unspecified; E78.5 Hyperlipidemia, unspecified; F41.9 Anxiety disorder, unspecified; Z86.73 Personal history of transient ischemic attack (TIA), and cerebral infarction without residual deficits; Z79.899 Other long term (current) drug therapy; Z79.82 Long term (current) use of aspirin; Z79.01 Long term (current) use of anticoagulants; Z87.891 Personal history of nicotine dependence
CPT/HCPCS: 70491; 71250; 80048; 80076; 85025; 85610; 85730; 86850; 86900; 86901; 87040; 87070; 87077; 87186; 87205; 87486; 87581; 87633; 87798; 93041; 94760; 96361; 96365; 96366; 96375; 99285; C9113; J0696; J2270; J2405; Q9967

== ENCOUNTER → 2019-05-10 | Outpatient (CLI) | payer MEDICARE, MEDICAID ==
[~2019-05-10] MED LIST changes: +FLUD0.1T PEG; +HYDR1SOL PEG; +JEVILIQ7 PEG
--- NOTE | 2019-05-10 16:02 | REP ---
CT of the chest without IV contrast: Comparison is 01/28/2019. On the comparison study there was a tree in bud lung parenchymal pattern in the right middle lobe and right lower lobe. This has resolved and is no longer present. In addition, on the comparison study where there is a 9 mm noncalcified pleural based nodule in the right middle lobe. This nodule is no longer present. The current study there is an infiltrate in the left lower lobe involving the anterior, lateral and posterior basilar segments. There is no pleural effusion. There is no mediastinal or axillary lymph node enlargement. The study is insensitive for hilar lymph node enlargement in the absence of IV contrast. The unenhanced thoracic aorta is unremarkable. Cardiac size is normal. There is no pericardial effusion. The visualized upper abdominal contents are unremarkable except for a PEG tube. Impression There is an acute left lower lobe infiltrate. The previous infiltrates in the right middle lobe and right lower lobe are no longer present. The previous right middle lobe nodule is no longer present. There are no pleural effusions. There is no adenopathy. Electronically Signed by Reginald Lundy MD 05/10/2019 03:53 P
== END ==
LOC: M RAD 13:52
PROVIDERS: ATTEND Internal Medicine Pulmonary Disease
DX: R91.8 Other nonspecific abnormal finding of lung field (principal)

== ENCOUNTER → 2019-05-23 | Outpatient (CLI) | payer MEDICARE, MEDICAID ==
[~2019-05-23] MED LIST changes: +FLUD0.1T PEG; +GRAN1TA PO; +HYDR1SOL PEG
--- NOTE | 2019-05-24 09:45 | RADONC ---
RADIATION ONCOLOGY CONSULTATION NOTE: DATE: 05/23/2019 CHART NUMBER: [id number] DIAGNOSIS: Head and neck cancer. STAGE: In progress. ECOG PERFORMANCE STATUS: 2. CONSULTATION NOTE: Mr. 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 HISTORY OF PRESENT ILLNESS: The patient has a long smoking history of 40 pack years. Over the past year he began having increasing jaw pain on the left side. He had been seen by his dentist apparently had some type of dental work removing a piece of bone. The patient is edentulous. Eventually the patient was seen at [facility] with left-sided facial and arm weakness in November 2018. He continued to be followed and various images were done including a mandible film on 02/13/2019 which showed no osseous mandibular injury. The patient continued to be followed and had worsening of his left jaw pain. On February 28, [address] scan of the maxillofacial region was undertaken which showed no acute osseous pathology of the facial bones. Everything appeared to be unremarkable. A MRI of the brain was done on 02/28/2019 as well and showed some early subacute ischemic infarct but no evidence of malignancy. The patient was once again seen continued complaints and on 05/07/[address] scan of the maxillofacial region was undertaken again. This time a large transpatial mass extending from the nasopharynx to the larynx was seen. It went from the pharynx externally to the parotid space and mandible as well as the skull base, the left parapharyngeal space, and the left periglottic fat. This appeared to be an aggressive malignancy. The patient was seen by Dr. Ras Ramos MD the ENT specialist at [facility]. He had recommended a PET/CT scan but the patient developed pneumonia and was transferred to [facility] for further management. A biopsy was undertaken on 05/13/2019 of the left neck mass which revealed metastatic poorly differentiated squamous cell carcinoma infiltrating fibrous tissue and skeletal muscle. A neck CT done on 05/10/2019 revealed interval progression of his left neck transpatial mass with increasing destruction of the left mandible, the hyoid bone and increased vascular involvement as well. There was near occlusion of the superior left internal carotid artery. There was greater than 70% stenosis of the proximal right internal carotid artery. The patient was seen by radiation oncology at [facility] on 05/11/[address] for initiation of treatment to his head and neck region. The patient however was discharged and decided he would rather have treatment up here so he is seeing me today once again to discuss therapy and to order the PET scan which has been requested by multiple physicians. PAST MEDICAL HISTORY: The patient's past medical history is positive for anxiety, chronic kidney disease, depression, aspiration pneumonia, kidney stones, hyperlipidemia, left carotid artery stenosis, left hemiparesis, sciatica, a stroke, and a TIA. He has had placement of a PEG tube, a tonsillectomy, TURP, cystoscopy, cataract surgery of the left eye, and carpal tunnel surgery. ALLERGIES: The patient has no known drug allergies. SOCIAL HISTORY: The patient has smoked two packs of cigarettes per day for over 40 years. He reports that he quit in November 2018. He does not abuse alcohol. He is using a feeding tube. FAMILY HISTORY: The patient's family history is positive for a brother with prostate cancer. REVIEW OF SYSTEMS: The patient's review of systems is positive for physical limitations as well as difficulty swallowing, anxiety, and depression, weight loss and weakness in his arms and legs and decreased energy. He denies nausea, vomiting, fevers, chills, night sweats, chest pain, urinary or bowel difficulties. He has physical limitations secondary to his stroke. PHYSICAL EXAMINATION: Physical examination was deferred at this time secondary to COVID-19. MEDICAL NECESSITY: IMRT/IGRT is clinically indicated for the highly conformal dose planning required. The target volume is in close proximity to critical structures, such as the normal brain, brainstem, eyes, optic nerves, spinal cord, parotid glands, and mandible. The volume of interest must be covered with narrow margins to adequately protect immediately adjacent structures. The plan requires interpretation of complex testing such as CT localization. As noted above, special planning (IMRT) and localizing (IGRT) is required and essential to maximally protect sensitive normal tissue structures which cannot be accomplished using conventional 3-dimensional planning. ASSESSMENT: I had a lengthy discussion with the patient and his . First we are ordering a PET/CT scan to be undertaken for further staging as well as initiation of treatment planning. Apparently, there have been several attempts to schedule a PET scan by various physicians but because of his usual course with multiple other issues these were deferred. We now need to complete staging and I will be ordering a PET/CT scan. The patient is scheduled to be seen by his medical oncologist, Dr. Yannick Landon at 1 o'clock today. I look forward to his expert opinion with regards to this patient's care. Once the PET/CT scan has been undertaken final recommendations can be made. At this time we need to attempt to achieve some type of local control of this disease which is eating into the mandible as well as the hyoid bone and musculature. The patient weighs only 106 pounds and his tolerance is going to be questionable. Luckily the patient is edentulous and we do not have to worry about dental issues at this point. In addition, he already has a feeding tube and has been dependent on it for quite some time so we should not significantly interfere with his ability for nutrition by initiating radiation. I look forward to working closely with Dr. Landon to coordinate his care whether or not he wishes to initiate neoadjuvant chemotherapy or go straight to combined radiation and systemic therapy. We will continue to follow this patient make further recommendations as indicated. cc: MD Valerio Rodríguez DO Karna Sura, MD Norman Weir, MD
== END ==
LOC: M ONCR 10:04
PROVIDERS: ATTEND Radiology Radiation Oncology
DX: C76.0 Malignant neoplasm of head, face and neck (principal)

== ENCOUNTER → 2019-05-27 | Outpatient (CLI) | payer MEDICARE, MEDICAID ==
[~2019-05-27] MED LIST changes: +LIDOCAINE 1% MDV 20ML VIAL As Ordered ONE; +MIDAZOLAM INJ 2 MG/2 ML VIAL (J2250) As Ordered ONE; +ceFAZolin 2 GM/D5W 50 ML IV BAG (J0690 PER 500MG) As Ordered ONE; +ceFAZolin 2 GM/D5W 50 ML IV BAG (J0690 PER 500MG) IV ONE; +diphenhydrAMINE INJ 50MG/ML VIAL (J1200) As Ordered ONE; +fentaNYL 100 MCG/2 ML INJECTION (J3010) As Ordered ONE
--- NOTE | 2019-05-27 14:46 | IRHP ---
[facility] IR Pre-Procedure H & P General Date of Service: May 27, 2019 Procedure: Same Day Surgery Interval History and Physical I have seen the patient and reviewed last H & P performed within 30 days. There is no significant interval change. History of Present Illness Chief Complaint The patient is a 68-year-old male admitted with a reason for visit of Head/Neck Ca-Chemo. PRE-PROCEDURE DIAGNOSIS: head and neck ca HEART: normal rate. LUNGS: normal breathing at rest. ASA Classification ASA Classification: III-Severe systemic dis. Mallampati Score: II NPO: Yes Problems with prior sedation: No Obstructive Sleep Apnea: No Plan moderate sedation Allergies Coded Allergies: No Known Allergies (Unverified , 04/15/19) Home Medications Scheduled Aspirin (Aspirin), 81 MG PEG DAILY, (Reported) Atorvastatin Calcium (Atorvastatin Calcium), 40 MG PEG DAILY, (Reported) Buspirone HCl (Buspirone HCl), 10 MG PEG BID, (Reported) Chlorhexidine Gluconate (Chlorhexadine Gluconate), 15 ML MT BID, (Reported) Clopidogrel Bisulfate (Plavix), 75 MG PEG DAILY, (Reported) Donepezil HCl (Donepezil HCl), 10 MG PEG QHS, (Reported) Fludrocortisone Acetate (Fludrocortisone Acetate), 0.05 MG PEG DAILY, (Reported) Granisetron HCl (Granisetron HCl), 1 MG PO DAILY Lactose-Reduced Food/Fiber (Jevity 1.2 Bud Liquid), 1 LIQ PEG 5XD, (Reported) Scheduled PRN Albuterol Sulf (Albuterol Sulfate), 2.5 MG INH Q4H PRN for COUGH, (Reported) Hydrocodone/Acetaminophen (Hydrocodone-Acetamn 7.5-325/15), 15 ML PEG Q6H PRN for PAIN Meclizine HCl (Meclizine HCl), 25 MG PEG Q8H PRN for DIZZINESS, (Reported) Discontinued Medications Meclizine HCl (Meclizine HCl), 25 MG PEG DAILY, (Reported) Discontinued Reason: Pt states not taking VS, I&O, 24H, Fishbone Vital Signs/I&O Vital Signs Date Time Temp Pulse Resp B/P (MAP) Pulse Ox O2 Delivery O2 Flow Rate FiO2 05/27/19 13:25 98.6 90 20 95 Room Air SUZIE OLSEN MD May 27, 2019 14:46
--- NOTE | 2019-05-27 16:00 | POST-OPPD ---
Postoperative Procedure Note Date Of Procedure: May 27, 2019 Time Of Procedure: 15:59 PREOPERATIVE DIAGNOSIS: head and neck ca POSTOPERATIVE DIAGNOSIS: same FINDINGS: patent right IJ PROCEDURE: right side port placed. ready to use SURGEON: cliff ANESTHESIA: mod sed ESTIMATED BLOOD LOSS: < 5 ml COMPLICATIONS: none POSTOPERATIVE CONDITION: stable SUZIE OLSEN MD May 27, 2019 16:00
[2019-05-27 17:30] VITALS: BP 136/68
--- NOTE | 2019-05-29 12:36 | REP ---
IR Ultrasound and fluoroscopy-guided port placement. IR Ultrasound of the neck. IR Moderate sedation. Clinical information: . Physician: Dr. Dotson. Procedure: The patient was advised of the benefits, risks, and alternatives of the procedure and informed consent was obtained. A time-out was performed with verification of the patient's name, MRN, site of procedure and type of procedure to be performed. The patient was positioned in the supine position on the angiographic table. The site was prepped and draped in the usual sterile fashion. Moderate sedation was performed by the physician including the presence of an independent trained observer who assisted and monitored the patient's level of consciousness and physiologic status. Following the administration of Fentanyl and Versed, the physician spent 45 minutes of continuous face to face time with the patient. Ultrasound of the neck reveals a patent and compressible right internal jugular vein. A admin asst radiograph reveals no gross abnormality. The neck and anterior chest wall were anesthetized with lidocaine. The right internal jugular vein was accessed using a microintroducer needle under ultrasound guidance, via a lateral approach. An 018 wire was advanced into the superior vena cava, the needle was removed and a microsheath was placed. An Amplatz wire was then passed into the inferior vena cava. An incision at the internal jugular vein access site and anterior chest wall were made using a scalpel. An incision was made at the anterior chest wall. A small pocket was created using a combination of blunt and sharp dissection. A tunneling device was then used to pass the catheter from the pocket to the neck puncture site. An 8-Palestinian Angio Quantum4D Smart power port was then positioned in the pocket. The catheter was then measured and cut. The introducer sheath was exchanged for a peel-away sheath. The catheter was passed through the peel-away sheath into the internal jugular vein and the peel-away sheath was removed. The port tip was positioned at the cavoatrial junction. The port was then accessed with a Archibald needle. The port flushes and aspirates well. The puncture site in the neck was closed. The chest wall incision was then closed with 2-0 Vicryl and 4-0 Monocryl. Glue and Steri-Strips were applied. A sterile dressing was then applied. The patient tolerated the procedure well and was returned to the PRU in stable condition. Estimated blood loss: <5 ml. Complications: None. Conclusion: 1. Successful placement of an 8-Palestinian Angio dynamics Smart power port via the right internal jugular vein. The port is ready for immediate use. 2. Patient to follow up in IR clinic in 2 weeks. Thank you for this referral. Electronically Signed by Madai Dotson MD 05/29/2019 12:35 P
== END ==
LOC: M IRPRO 12:22
PROVIDERS: ATTEND Radiology Diagnostic Radiology
DX: C76.0 Malignant neoplasm of head, face and neck (principal); Z79.899 Other long term (current) drug therapy; Z79.82 Long term (current) use of aspirin
CPT/HCPCS: 36561; 99152; 99153; C1769; C1788; C1894; J0690; J1200; J1642; J1644; J2250; J3010

== ENCOUNTER → 2019-06-03 | Outpatient (CLI) | payer MEDICARE, MEDICAID ==
[~2019-06-03] MED LIST changes: -LIDOCAINE 1% MDV 20ML VIAL As Ordered ONE; -MIDAZOLAM INJ 2 MG/2 ML VIAL (J2250) As Ordered ONE; -ceFAZolin 2 GM/D5W 50 ML IV BAG (J0690 PER 500MG) As Ordered ONE; -ceFAZolin 2 GM/D5W 50 ML IV BAG (J0690 PER 500MG) IV ONE; -diphenhydrAMINE INJ 50MG/ML VIAL (J1200) As Ordered ONE; -fentaNYL 100 MCG/2 ML INJECTION (J3010) As Ordered ONE
--- NOTE | 2019-06-03 17:17 | REP ---
PET/CT: History: Staging squamous cell carcinoma of the left neck. Comparisons: Comparison CT and MRI study of the neck are from April 2019. TECHNIQUE: 49 minutes following the intravenous injection of a 9.08 mCi dose of F-18 FDG, three-dimensional PET scintigraphy is acquired from the skull base to the proximal thighs. Triplanar noncontrast CT scanning is acquired through the same anatomic range for attenuation correction, and image registration with scan parameters optimized to minimize radiation exposure to the patient. PET scintigraphy and CT datasets were fused and displayed on a workstation with multiplanar and projection display capability. PET/CT Findings: PET/CT study confirms the presence of an extensive hypermetabolic trans spatial soft-tissue neck mass which extends from the retropharyngeal soft tissues at the skull base where there is invasion of the clivus through the retro mandibular and left peritonsillar soft tissues. The left internal carotid artery and vascular space are involved and engulfed. There is bony erosive change of the posterior surface of the mandible. The lesion crosses the midline caudally just above the level of the hyoid bone. No infrahyoid adenopathy is seen in the head and neck soft tissues. Maximum standard uptake values in the left neck process range up to 8.34. At the level of the clivus involvement, maximum standard uptake value is 7.86. At the posterior mandible, maximum standard uptake value is 8.15. There is visible but nonhypermetabolic uptake in a right middle lobe pleural-based nodule anteriorly. No other abnormal pulmonary parenchymal hypermetabolic uptake is appreciated. There is subsegmental atelectasis in the left lower lobe on the dome of the left hemidiaphragm. No abnormal hypermetabolic uptake is seen within the liver. Gallstones are noted. No focal splenic lesion is seen. No abnormal gayla uptake is seen in the abdomen or pelvis. Moderate to marked dilation of the urinary bladder is noted extending well above the umbilicus consistent with prostatism and bladder outlet obstruction. No suspicious hypermetabolic skeletal uptake. Impression: Extensive left neck transspatial hypermetabolic mass with skull base and left posterior mandible bony involvement. The lesion extends from the skull base to the level of the hyoid bone where it crosses the midline to the right. There is a small nodular opacity in the right middle lobe anteriorly which shows visible but non hypermetabolic uptake. No other evidence of metastatic disease. Electronically Signed by Emir Finney MD 06/03/2019 06:04 P
== END ==
LOC: M PLARAD 09:17
PROVIDERS: ATTEND Radiology Radiation Oncology
DX: C44.42 Squamous cell carcinoma of skin of scalp and neck (principal)
CPT/HCPCS: 78815; A9552

== ENCOUNTER → 2019-06-18 | Outpatient (POV) | payer MEDICARE, MEDICAID ==
--- NOTE | 2019-06-19 09:28 | IRPN ---
[facility] IR Progress Note IR Progress Note DATE: Jun 18, 2019 Tele follow up FOLLOW-UP: status post port placement, patient doing well. No pain, fever or discomfort. Port not being used presently as treatment not started. ON EXAMINATION: Patient sent images of the port. Site looks to be healing well. No redness or discharge. IMPRESSION: Doing well status post port placement. Patient advised to get order to have port flushed at least once a month in infusion. If he has issues getting this order, call us back. No further follow up needed unless scheduled by patient and or referring provider. Thank you for this referral CC pcp Allergies Coded Allergies: No Known Allergies (Unverified , 04/15/19) SUZIE OLSEN MD Jun 19, 2019 09:28
== END ==
LOC: M IRPOV 09:04
PROVIDERS: ATTEND Radiology Diagnostic Radiology
DX: Z45.2 Encounter for adjustment and management of vascular access device (principal)

== ENCOUNTER 2019-07-15 12:27 | Inpatient (IN) | payer MEDICARE, MEDICAID ==
[~2019-07-15] VITALS: Ht 157.5 cm; Wt 51.9 kg
[~2019-07-15 12:27] MED LIST changes: +GABA-282 PO; -GABA-843 PO; -GRAN1TA PO; +GRAN1TAB PO
[2019-07-15] MEDS ORDERED: methylPREDNISolone 125MG 2ML VIAL IV ONE (13:00)
[2019-07-15] MEDS ORDERED: diphenhydrAMINE 50MG/ML VIAL (J1200) IV STA (13:03)
[2019-07-15 13:28] LABS: HEMATOCRIT 32.3 % (42.0-52.0); HEMOGLOBIN 10.3 g/dl (13.5-17.5); MEAN CORPUSCULAR HEMOGLOBIN 29.3 pg (27.0-33.0); MEAN CORPUSCULAR HGB CONC 31.9 g/dl (32.0-36.5); MEAN CORPUSCULAR VOLUME 91.8 fl (80.0-96.0); PLATELET COUNT, AUTOMATED 332 10^3/uL (150-450); RED BLOOD COUNT 3.52 10^6/uL (4.30-6.10); WHITE BLOOD COUNT 10.9 10^3/uL (4.0-10.0)
[2019-07-15 13:47] LABS: BLOOD UREA NITROGEN 22 MG/DL (7-18); CALCIUM LEVEL 8.2 MG/DL (8.8-10.2); CARBON DIOXIDE LEVEL 30 MEQ/L (21-32); CHLORIDE LEVEL 99 MEQ/L (98-107); CREATININE FOR GFR 0.48 MG/DL (0.70-1.30); GLOMERULAR FILTRATION RATE > 60.0 (>49); GLUCOSE, FASTING 111 MG/DL (70-100); POTASSIUM SERUM 4.2 MEQ/L (3.5-5.1); SODIUM LEVEL 135 MEQ/L (136-145)
--- NOTE | 2019-07-15 15:16 | REP ---
CHEST, SINGLE VIEW: Single view of the chest is performed and compared to prior study of 02/28/2019. There is small right pleural effusion with mild adjacent right base atelectasis/infiltrate. There is mild underlying interstitial prominence which is chronic in nature. The heart is not enlarged. Mediastinal silhouette is unchanged. Right central venous catheter is seen with the tip in the superior vena cava. IMPRESSION: Small right pleural effusion with mild adjacent right base atelectasis/infiltrate. Electronically Signed by Reginald Dumont MD 07/15/2019 07:31 P
[2019-07-15] MEDS ORDERED: HYDR1SOL PEG (15:24)
[2019-07-15] MEDS ORDERED: MECL-86 PO (15:25)
[2019-07-15] MEDS ORDERED: FLUTISP ×2 (15:26→15:28)
[2019-07-15] MEDS ORDERED: FLON1SPR (15:28)
[2019-07-15] MEDS ORDERED: ACETAMINOPHEN TAB 650MG DOSE (2X325MG) PO PRN (15:45)
[2019-07-15 16:23] VITALS: BP 110/59
--- NOTE | 2019-07-15 16:51 | HPEPDOC ---
General Date of Admission July 15, 2019 at 15:35 Date of Service: July 15, 2019 Chief Complaint The patient is a 68-year-old male admitted with a reason for visit of Edema Tongue. 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 Patient was unable to provide detailed information due to severe tongue and oropharyngeal swelling. Of note, patient declined treatment for squamous cell carcinoma and its advanced stage with metastasis. His sister who is a power of commonwealth attorney discussed with hospice specialist B[employer] PR[employer] MANAGER status, but because of COVID hospice placement was not done. The family wants reasonable conservative treatment and not any intubation or tracheostomy in case of hypoxia and asphyxia. Patient received 1 dose of Solu-Medrol and Benadryl in ER. Chest x-ray showed small right pleural effusion with mild adjacent right base atelectasis/infiltrate. When I saw patient patient had drooling, significantly swollen tongue, unable to verbally communicate. Home Medications Scheduled Aspirin (Aspirin) 81 Mg Tab.chew, 81 MG PEG DAILY, (Reported) Atorvastatin Calcium (Atorvastatin Calcium) 40 Mg Tablet, 40 MG PEG DAILY, (Reported) Buspirone HCl (Buspirone HCl) 10 Mg Tab, 20 MG PEG BID, (Reported) Clopidogrel Bisulfate (Plavix) 75 Mg Tablet, 75 MG PEG DAILY, (Reported) Donepezil HCl (Donepezil HCl) 10 Mg Tablet, 10 MG PEG QHS, (Reported) Fludrocortisone Acetate (Fludrocortisone Acetate) 0.1 Mg Tablet, 0.05 MG PEG DAILY, (Reported) Fluticasone Propionate (Fluticasone Propionate) 16 Gm [place].susp, 2 SPRAYS NA BID, (Reported) Lactose-Reduced Food/Fiber (Jevity 1.2 Bud Liquid) 237 Ml Liquid, 1 LIQ PEG 5XD, (Reported) 12 OZ FEEDINGS Meclizine HCl (Meclizine HCl) 25 Mg Tablet, 25 MG PO DAILY, (Reported) Scheduled PRN Hydrocodone/Acetaminophen (Hydrocodone-Acetamn 7.5-325/15) 118 Ml Solution, 15 ML PEG Q6HP PRN for PAIN, (Reported) MDD 20 ML Meclizine HCl (Meclizine HCl) 25 Mg Tablet, 25 MG PEG Q8H PRN for DIZZINESS, (Reported) Allergies Coded Allergies: No Known Allergies (Unverified , 07/15/19) Past Medical History Medical History 1. COPD. 2. Hyperlipidemia. 3. CVA. Squamous cell carcinoma of the pharynx Surgical History CARPAL TUNNEL RELEASE(LEFT) 02/2008 CARPAL TUNNEL RELEASE (RIGHT) 04/2008 CATARACT LEFT EYE 05/06/14 BILATERAL ESWL AND CYSTOSCOPY 12/21/2017 TURP 03/07/2018 PEG tube placement Family History The patient's father at age of 77 from organic heart disease. The patient's mother at the age of 84 with history of diabetes and organic heart disease. The patient has a brother who is alive with history of prostate cancer. Social History * Smoker: former Smoker Alcohol: Denies Drugs: denies A-FIB/CHADSVASC A-FIB History Current/History of A-Fib/PAF?: No Current PO Anticoag Therapy: No Review of Systems Constitutional: Reports: Malaise, Weakness, Weight Loss Eyes: Denies: Pain ENT: Reports: Dysphagia, Other Symptoms (done and oropharyngeal swelling) Skin: Denies: Rash Pulmonary: Reports: Dyspnea Cardiovascular: Denies: Chest Pain Gastrointestinal: Denies: Nausea, Vomiting Genitourinary: Denies: Dysuria Hematologic: Denies: Bruising Endocrine: Denies: Polydipsia Musculoskeletal: Reports: Neck Pain Neurological: Reports: Change in speech Psych: Reports: Anxiety Physical Examination General Exam: Positive: Alert, Moderate Distress Eye Exam: Negative: PERRLA ENT Exam: Positive: Pharyngeal Edema, Other ENT (swollen tongue); Negative: Tongue Midline Neck Exam: Negative: JVD Chest Exam: Positive: Rhonchi Heart Exam: Positive: Tachycardic Telemetry: Positive: Sinus Abdomen Exam: Positive: BS Hyperactive Extremity Exam: Positive: Clubbing; Negative: Cyanosis Skin Exam: Negative: Rash Neuro Exam: Positive: Sensation Intact, Reflexes 2+ Psych Exam: Positive: Mental status NL Vital Signs Vital Signs Date Time Temp Pulse Resp B/P (MAP) Pulse Ox O2 Delivery O2 Flow Rate FiO2 07/15/19 12:28 98.6 106 22 122/78 (93) 96 Room Air Laboratory Data Labs 24H Laboratory Tests 2 07/15/19 12:57: Nucleated Red Blood Cells % (auto) 0.0, Anion Gap 6L, Glomerular Filtration Rate > 60.0, Calcium Level 8.2L CBC/BMP Laboratory Tests 07/15/19 12:57 Microbiology Microbiology 07/15/19 Blood Culture, Received Pending Assessment/Plan Patient is 68 years old male with past medical history of carotid artery stenosis, hyperlipidemia, depression, anxiety, CVA resulting with severe oropharyngeal dysfunction, PEG tube, 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 Patient was unable to provide detailed information due to severe tongue and oropharyngeal swelling. Family stated that he had been having increased tongue swelling for past 2 days. Patient denied any itchiness. Of note, patient declined treatment for squamous cell carcinoma and its advanced stage with metastasis. His sister who is a power of commonwealth attorney discussed with hospice specialist [employer] MANAGER status, but because of COVID hospice placement was not done. The family wants reasonable conservative treatment and not any intubation or tracheostomy in case of hypoxia and asphyxia. Patient received 1 dose of Solu-Medrol and Benadryl in ER. Chest x-ray showed small right pleural effusion with mild adjacent right base atelectasis/infiltrate. When I saw patient patient had drooling, significantly swollen tongue, unable to verbally communicate. Problems (1) Angioedema Status: Acute Problem Text: Unclear etiology for now Patient did not start any new medications or food There is possibility of paraneoplastic manifestation of squamous cell carcinoma I will check C4 level, C1 esterase inhibitor, C1q Continue Solu-Medrol IV, Benadryl IV, montelucast I will hold NSAIDS (2) Squamous cell carcinoma of oropharynx Status: Chronic Problem Text: Patient denied chemotherapy and radiation treatment (3) Laryngeal mass Status: Acute Problem Text: See above (4) Dysphagia as late effect of cerebrovascular accident (CVA) Status: Chronic Problem Text: Continue PEG tube feeding Plan / VTE VTE Prophylaxis Ordered?: Yes SREEKANTH FRAIRE DO July 15, 2019 16:51
[2019-07-15] MEDS ORDERED: MECLIZINE 25 MG TABLET PEG PRN (17:00)
[2019-07-15] MEDS ORDERED: PILL CUTTER 1 EACH XX PRN (17:00)
[2019-07-15] MEDS: MONTELUKAST 10 MG TAB PEG SCH (18:39)
[2019-07-15] MEDS: D5W/0.45% SODIUM CHLORIDE 1,000 ML IV SCH (18:39)
[2019-07-15] MEDS: methylPREDNISolone 125MG 2ML VIAL IV SCH (18:39)
[2019-07-15 22:00] VITALS: BP 109/73
[2019-07-15] MEDS: diphenhydrAMINE 50MG/ML VIAL (J1200) IV SCH (23:05)
[2019-07-15] MEDS: busPIRone 10 MG TAB PEG SCH (23:05)
[2019-07-15] MEDS: HEPARIN SOD (PORCINE) 5000UNITS/ML 1ML VIAL/SYRINGE SC SCH (23:05)
[2019-07-15] MEDS: HYDROcodone/APAP LIQUID 7.5-325MG 15ML UDC (LORTAB ELIXIR) PEG PRN (23:07)
[2019-07-16] MEDS: methylPREDNISolone 125MG 2ML VIAL IV SCH ×4 (00:19→18:21)
[2019-07-16 06:00] VITALS: BP 112/79
[2019-07-16 06:13] LABS: HEMATOCRIT 31.1 % (42.0-52.0); HEMOGLOBIN 9.9 g/dl (13.5-17.5); MEAN CORPUSCULAR HEMOGLOBIN 28.9 pg (27.0-33.0); MEAN CORPUSCULAR HGB CONC 31.8 g/dl (32.0-36.5); MEAN CORPUSCULAR VOLUME 90.9 fl (80.0-96.0); PLATELET COUNT, AUTOMATED 333 10^3/uL (150-450); RED BLOOD COUNT 3.42 10^6/uL (4.30-6.10); WHITE BLOOD COUNT 9.3 10^3/uL (4.0-10.0)
[2019-07-16 06:33] LABS: BLOOD UREA NITROGEN 23 MG/DL (7-18); CALCIUM LEVEL 8.6 MG/DL (8.8-10.2); CARBON DIOXIDE LEVEL 30 MEQ/L (21-32); CHLORIDE LEVEL 105 MEQ/L (98-107); GLOMERULAR FILTRATION RATE > 60.0 (>49); GLUCOSE, FASTING 177 MG/DL (70-100); SODIUM LEVEL 140 MEQ/L (136-145)
[2019-07-16] MEDS: D5W/0.45% SODIUM CHLORIDE 1,000 ML IV SCH ×2 (06:36→20:05)
[2019-07-16] MEDS: diphenhydrAMINE 50MG/ML VIAL (J1200) IV SCH ×3 (06:37→22:06)
[2019-07-16] MEDS: HYDROcodone/APAP LIQUID 7.5-325MG 15ML UDC (LORTAB ELIXIR) PEG PRN ×3 (06:39→22:07)
[2019-07-16] MEDS ORDERED: MECLIZINE 25 MG TABLET PO SCH (09:00)
[2019-07-16] MEDS: HEPARIN SOD (PORCINE) 5000UNITS/ML 1ML VIAL/SYRINGE SC SCH ×2 (10:10→22:06)
[2019-07-16] MEDS: busPIRone 10 MG TAB PEG SCH ×2 (10:11→22:05)
[2019-07-16] MEDS: CLOPIDOGREL 75 MG TAB PEG SCH (10:11)
[2019-07-16] MEDS: MONTELUKAST 10 MG TAB PEG SCH (10:11)
[2019-07-16] MEDS: FLUDROCORTISONE ACETATE 0.1 MG TAB PEG SCH (10:12)
[2019-07-16] MEDS: MECLIZINE 25 MG TABLET PEG SCH (10:22)
[2019-07-16 14:00] VITALS: BP 130/67
--- NOTE | 2019-07-16 14:37 | IPNPDOC ---
Text Note Date of Service The patient was seen on 07/16/19. NOTE Subjective: Patient on swelling markedly improved, saliva drooling almost sto pped. Objective: VITAL SIGNS: Please see below. GENERAL: awake, alert, NAD HEENT: NCAT, anicteric sclera, ARLENE, mild tongue protruding, mildly swollen tongue NECK: Bilateral neck fullness CARDIOVASCULAR EXAMINATION: NS1S2, regular rate/rhythm RESPIRATORY EXAMINATION: CTA b/l, no wheezes/rales/rhonchi ABDOMINAL EXAMINATION: positive bowel sounds x 4, NT EXTREMITIES: no cyanosis, clubbing, edema SKIN: warm, no rashes. 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 Patient was unable to provide detailed information due to severe tongue and oropharyngeal swelling. Family stated that he had been having increased tongue swelling for past 2 days. Patient denied any itchiness. Of note, patient declined treatment for squamous cell carcinoma and its advanced stage with metastasis. His sister who is a power of licensed social worker discussed with hospice specialist SHR[employer] PIT OPERATOR status, but because of COVID hospice placement was not done. The family wants reasonable conservative treatment and not any intubation or tracheostomy in case of hypoxia and asphyxia. Patient received 1 dose of Solu-Medrol and Benadryl in ER. Chest x-ray showed small right pleural effusion with mild adjacent right base atelectasis/infiltrate. When I saw patient patient had drooling, significantly swollen tongue, unable to verbally communicate. Problems (1) Angioedema Unclear etiology for now Improved today Patient did not start any new medications or food There is possibility of paraneoplastic manifestation of squamous cell carcinoma C4 level, C1 esterase inhibitor, C1q pending Continue Solu-Medrol IV, Benadryl IV, montelucast I will hold NSAIDS (2) Squamous cell carcinoma of oropharynx Patient denied chemotherapy and radiation treatment (3) Laryngeal mass See above (4) Dysphagia as late effect of cerebrovascular accident (CVA) Continue PEG tube feeding VS,Fishbone, I+O VS, Fishbone, I+O Laboratory Tests 07/16/19 05:46 Vital Signs Date Time Temp Pulse Resp B/P (MAP) Pulse Ox O2 Delivery O2 Flow Rate FiO2 07/16/19 13:15 97.5 91 18 112/79 94 Room Air I&O- Last 24 Hours up to 6 AM 07/16/19 06:00 Intake Total 1810 ml Output Total 0 ml Balance 1810 ml SREEKNATH FRAIRE DO July 16, 2019 14:37
[2019-07-16 22:00] VITALS: BP 129/76
[2019-07-17] MEDS: methylPREDNISolone 125MG 2ML VIAL IV SCH ×3 (01:26→12:29)
[2019-07-17] MEDS: ACETAMINOPHEN 325 MG/10.15 ML UDC PEG PRN ×2 (02:50→10:53)
[2019-07-17] MEDS ORDERED: ACETAMINOPHEN TAB 650MG DOSE (2X325MG) PEG PRN (03:45)
[2019-07-17 06:00] VITALS: BP 136/72
[2019-07-17] MEDS: diphenhydrAMINE 50MG/ML VIAL (J1200) IV SCH ×2 (06:45→12:29)
[2019-07-17] MEDS: HYDROcodone/APAP LIQUID 7.5-325MG 15ML UDC (LORTAB ELIXIR) PEG PRN (06:46)
[2019-07-17] MEDS: HEPARIN SOD (PORCINE) 5000UNITS/ML 1ML VIAL/SYRINGE SC SCH (10:53)
[2019-07-17] MEDS: busPIRone 10 MG TAB PEG SCH (10:53)
[2019-07-17] MEDS: CLOPIDOGREL 75 MG TAB PEG SCH (10:54)
[2019-07-17] MEDS: FLUDROCORTISONE ACETATE 0.1 MG TAB PEG SCH (10:54)
[2019-07-17] MEDS: MONTELUKAST 10 MG TAB PEG SCH (10:54)
[2019-07-17] MEDS: MECLIZINE 25 MG TABLET PEG SCH (10:55)
[2019-07-17] MEDS ORDERED: PRED50TA PO (11:29)
[2019-07-17] MEDS ORDERED: BENA25CA4 PO (11:29)
--- NOTE | 2019-07-17 17:07 | DS.PDOC ---
Discharge Summary General Date of Admission July 15, 2019 at 15:35 Date of Discharge 07/17/19 Discharge Summary PROCEDURES PERFORMED DURING STAY: [None]. ADMITTING DIAGNOSES: Angioedema Squamous cell carcinoma of oropharynx Laryngeal mass Dysphagia as late effect of cerebrovascular accident (CVA) DISCHARGE DIAGNOSES: Angioedema Squamous cell carcinoma of oropharynx Laryngeal mass Dysphagia as late effect of cerebrovascular accident (CVA) COMPLICATIONS/CHIEF COMPLAINT: Edema Tongue. 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 Patient was unable to provide detailed information due to severe tongue and oropharyngeal swelling. Family stated that he had been having increased tongue swelling for past 2 days. Patient denied any itchiness. Of note, patient declined treatment for squamous cell carcinoma and its advanced stage with metastasis. His sister who is a power of securities attorney discussed with hospice specialist ASSISTANT CURATOR status, but because of COVID hospice placement was not done. The family wants reasonable conservative treatment and not any intubation or tracheostomy in case of hypoxia and asphyxia. Patient received 1 dose of Solu-Medrol and Benadryl in ER. Chest x-ray showed small right pleural effusion with mild adjacent right base atelectasis/infiltrate. When I saw patient patient had drooling, significantly swollen tongue, unable to verbally communicate. HOSPITAL COURSE: The following issue addressed (1) Angioedema Unclear etiology Improved after steroids and Benadryl Patient did not start any new medications or food There is possibility of paraneoplastic manifestation of squamous cell carcinoma C4 level, C1 esterase inhibitor, C1q pending (2) Squamous cell carcinoma of oropharynx Patient declined chemotherapy and radiation treatment (3) Laryngeal mass See above (4) Dysphagia as late effect of cerebrovascular accident (CVA) Continue PEG tube feeding DISCHARGE MEDICATIONS: Please see below. ALLERGIES: Please see below. PHYSICAL EXAMINATION ON DISCHARGE: VITAL SIGNS: Please see below. GENERAL: awake, alert, NAD HEENT: NCAT, anicteric sclera, ARLENE, mild tongue protruding, mildly swollen tongue NECK: Bilateral neck fullness CARDIOVASCULAR EXAMINATION: NS1S2, regular rate/rhythm RESPIRATORY EXAMINATION: CTA b/l, no wheezes/rales/rhonchi ABDOMINAL EXAMINATION: positive bowel sounds x 4, NT EXTREMITIES: no cyanosis, clubbing, edema SKIN: warm, no rashes. NEUROLOGICAL EXAMINATION: AAO x 3, no motor/sensory deficits LABORATORY DATA: Please see below. PROGNOSIS: Poor ACTIVITY: [As tolerated]. DIET: via PEG DISPOSITION: 01 Home, Self-Care. ITEMS TO FOLLOWUP ON ON OUTPATIENT: Hospice service DISCHARGE CONDITION: [Stable]. TIME SPENT ON DISCHARGE: Greater than 20 minutes. Vital Signs/I&Os Vital Signs Date Time Temp Pulse Resp B/P (MAP) Pulse Ox O2 Delivery O2 Flow Rate FiO2 07/17/19 07:16 20 Room Air 07/17/19 06:00 97.8 76 136/72 (93) 96 I&O- Last 24 Hours up to 6 AM 07/17/19 06:00 Intake Total 4150 ml Output Total 250 ml Balance 3900 ml Microbiology Microbiology 07/15/19 Blood Culture - Preliminary, Resulted No Growth after 48 hours. All Specime... 07/15/19 Blood Culture - Preliminary, Resulted No Growth after 48 hours. All Specime... Discharge Medications Scheduled Buspirone HCl (Buspirone HCl) 10 Mg Tab, 20 MG PEG BID, (Reported) Diphenhydramine HCl (Benadryl) 25 Mg Capsule, 2 CAP PO Q8H Donepezil HCl (Donepezil HCl) 10 Mg Tablet, 10 MG PEG QHS, (Reported) Fludrocortisone Acetate (Fludrocortisone Acetate) 0.1 Mg Tablet, 0.05 MG PEG DAILY, (Reported) Fluticasone Propionate (Fluticasone Propionate) 16 Gm [place].susp, 2 SPRAYS NA BID, (Reported) Lactose-Reduced Food/Fiber (Jevity 1.2 Bud Liquid) 237 Ml Liquid, 1 LIQ PEG 5XD, (Reported) 12 OZ FEEDINGS Meclizine HCl (Meclizine HCl) 25 Mg Tablet, 25 MG PO DAILY, (Reported) Prednisone (Prednisone) 50 Mg Tablet, 1 TAB PO DAILY Scheduled PRN Hydrocodone/Acetaminophen (Hydrocodone-Acetamn 7.5-325/15) 118 Ml Solution, 15 ML PEG Q6HP PRN for PAIN, (Reported) MDD 20 ML Meclizine HCl (Meclizine HCl) 25 Mg Tablet, 25 MG PEG Q8H PRN for DIZZINESS, ( Reported) Allergies Coded Allergies: No Known Allergies (Unverified , 07/15/19) SREEKANTH FRAIRE DO July 17, 2019 17:07
[2019-07-23 16:08] LABS: C1 ESTER INHIB. NON FUNCTIONAL 35 mg/dL (21-39); C1 ESTERASE INHIB. FUNCTIONAL > 100 (.)
== END 2019-07-17 12:58 | disposition home or self-care (01) | DRG 916 ==
LOC: M ED 12:27 → M ED INP 15:35 → ENRESERV 16:00 → M MSPAV 16:23
PROVIDERS: ADMIT Internal Medicine; ATTEND Internal Medicine
DX: T78.3XXA Angioneurotic edema, initial encounter (principal); I69.391 Dysphagia following cerebral infarction; C10.9 Malignant neoplasm of oropharynx, unspecified; J44.9 Chronic obstructive pulmonary disease, unspecified; E78.5 Hyperlipidemia, unspecified; F32.9 Major depressive disorder, single episode, unspecified; F41.9 Anxiety disorder, unspecified; Z79.899 Other long term (current) drug therapy; Z79.82 Long term (current) use of aspirin